=== PATIENT | female | born 1930 | race Caucasian/White ===

== ENCOUNTER 2017-10-02 14:08 | Inpatient (IN) | payer MEDICARE ==
[2017-10-02 14:52] LABS: % BASOPHILS 1.4 % (0.0-2.0); % EOSINOPHILS 1.7 % (0.0-5.0); % LYMPHOCYTES 30.3 % (20.0-50.0); % MONOCYTES 11.8 % (2.0-10.0); % NEUTROPHILS 54.8 % (40.0-80.0); BASOPHILE ABSOLUTE 0.1 Th/cumm (0-0.2); EOSINOPHILE ABSOLUTE 0.1 Th/cmm (0.1-0.4); HEMATOCRIT 38.7 % (41.0-60); LYMPHOCYTE ABSOLUTE 2.1 Th/cmm (1.5-3.0); MEAN CELL VOLUME 84.9 fl (81-100); MEAN CORPUSCULAR HEMOGLOBIN 28.7 pg (27.0-31.0); MEAN CORPUSCULAR HGB CONC 33.7 pg (28.0-36.0); MEAN PLATELET VOLUME 8.1 fl; MONOCYTE ABSOLUTE 0.8 Th/cmm (0.3-1.0); NEUTROPHILE ABSOLUTE 3.8 Th/cmm (1.8-8.0); PLATELET COUNT 197 Th/cmm (150-400); RED BLOOD COUNT 4.55 Mil/cmm (3.80-5.20); RED CELL DISTRIBUTION WIDTH 15.3 % (11.5-20.0); WHITE BLOOD COUNT 6.9 Th/cmm (4.8-10.8)
--- NOTE | 2017-10-02 14:54 | Diagnostic Imaging Report ---
Portable chest x-ray HISTORY: Pain The heart size is normal. A 5 mm calcified nodule is seen within the left upper lobe of the lung consistent with old granulomatous disease. No acute pulmonary processes. No hilar or mediastinal abnormalities. IMPRESSION: 1. Small calcified nodule within the left upper lobe of the lung consistent with old granulomatous disease. 2. No acute abnormalities
[2017-10-02 14:58] LABS: INR 0.98 (0.5-1.4); PROTHROMBIN TIME (TEST) 10.2 SECONDS (9.5-11.5)
--- NOTE | 2017-10-02 14:59 | ED Physician Chart ---
ED Chief Complaint/HPI - Patient Information Date Seen:: 10/02/17 Time Seen:: 14:40 Chief Complaint:: Fever History of Present Illness:: onset x 3 days of fever, cough, congestion, and dyspnea; no report of trauma, H/ As, S/T, neck pain, C/P, Abd. Pain, A/N/V/D/C, chills, or urinary s/s Allergies:: Allergies Allergy/AdvReac Type Severity Reaction Status Date / Time No Known Allergies Allergy Verified 10/02/17 14:37 Vitals:: Vital Signs - 8 hr 10/02/17 14:42 Temp 98.4 F HR 77 RR 27 BP 207/94 O2 Sat % 97 Historian:: Patient, Family Member Review:: Nurse's Note Reviewed ED Review of Systems - Review of Systems General/Constitutional: Fever, No chills, No weight loss, No weakness, No diaphoresis, No edema, No loss of appetite Skin: No skin lesions, No rash, No bruising Head: No headache, No light-headedness Eyes: No loss of vision, No pain, No diplopia ENT: No earache, Nasal drainage, No sore throat, No tinnitus Neck: No neck pain, No swelling, No thyromegaly, No stiffness, No mass noted Cardio Vascular: No chest pain, No palpitations, No PND, No orthopnea, No edema Pulmonary: SOB, Cough, No sputum, No wheezing GI: No nausea, No vomiting, No diarrhea, No pain, No melena, No hematochezia, No constipation, No hematemesis G/U: No dysuria, No frequency, No hematuria, No nacturia Loss Prevention Detective: No vaginal discharge, No abnormal vaginal bleed, No contraction Musculoskeletal: No bone or joint pain, No back pain, No muscle pain Endocrine: No polyuria, No polydipsia Psychiatric: No prior psych history, No depression, No anxiety, No suicidal ideation, No homicidal ideation, No auditory hallucination, No visual hallucination Hematopoietic: No bruising, No lymphadenopathy Allergic/Immuno: No urticaria, No angioedema Neurological: No syncope, No focal symptoms, No weakness, No paresthesia, No headache, No seizure, No dizziness, Confusion, No vertigo ED Past Medical History - Past Medical History Obtainable: Yes Past Medical History: HTN, Asthma/COPD, Dyslipidemia, Dementia Family History: HTN Social History: Non Smoker, No Alcohol, No Drug Use, Surgical History: None Psychiatricy History: Dementia Medication: Reviewed ED Physical Exam - Physical Examination General/Constitutional: Awake, Well-developed, well-nourished, Alert, No distress, GCS 15, Non-toxic appearing, Ambulatory Head: Atraumatic Eyes: Lids, conjuctiva normal, PERRL, EOMI Skin: Nl inspection, No rash, No skin lesions, No ecchymosis, Well hydrated, No lymphadenopathy ENMT: External ears, nose nl, TM canals nl, Nasal exam nl, Lips, teeth, gums nl , Oropharynx nl, Tonsils nl Neck: Nontender, Full ROM w/o pain, No JVD, No nuchal rigidity, No bruit, No mass, No stridor Other Neck comments:: no meningeal signs; supple Respiratory: Nl effort/Exclusion Other Respiratory comments:: Lungs: + Rales Cardio Vascular: RRR, No murmur, gallop, rubs, NL S1 S2, Carotid/Femoral/Distal pulses equal bilaterally GI: No tenderness/rebounding/guarding, No organomegaly, No hernia, Normal BS's, Nondistended, No mass/bruits, No McBurney tenderness Other GI comments:: no pulsatile masses : No CVA tenderness Extremities: No tenderness or effusion, Full ROM, normal strength in all extremities, No edema, Normal digits & nails Neuro/Psych: Alert/oriented, DTR's symmetric, Normal sensory exam, Normal motor strength, Judgement/insight normal, Mood normal, Normal gait, No focal deficits Misc: Normal back, No paraspinal tenderness ED Labs/Radiology/EKG Results - Lab Results Results: Laboratory Tests 10/02/17 14:30 WBC 6.9 RBC 4.55 Hgb 13.0 Hct 38.7 L MCV 84.9 MCH 28.7 MCHC Differential 33.7 RDW 15.3 Plt Count 197 MPV 8.1 Neutrophils % 54.8 Lymphocytes % 30.3 Monocytes % 11.8 H Eosinophils % 1.7 Basophils % 1.4 Comments:: D-Dimer: 1780; Troponin: .07; BNP: 255 - Radiology Results Comments:: + Infiltrate - EKG Interpretations EKG Time:: 14:33 Rate & Rhythm: 75; NSR Comments:: non-specific st-t changes ED Septic Shock - . Is Septic Shock (SBP<90, OR Lactate>4 mmol\L) present?: No - <6hrs of presentation: Vital Signs: Vital Signs - 8 hr 10/02/17 14:42 Temp 98.4 F HR 77 RR 27 BP 207/94 O2 Sat % 97 ED Reassessment (Disposition) - Reassessment Reassessment Condition:: Improved - Diagnosis Diagnosis:: Dx: Dyspnea; PNA; Sepsis; R/O: Pulmonary Embolus; CHF; Myocardial Ischemia - Aftercare/Follow up Instructions Aftercare/Follow-Up Instructions:: Counseled pt regarding lab results/diagnosis & need follow up, Counseled pt & family regarding lab results/diagnosis & need follow up - Patient Disposition Discharge/Transfer:: Acute Care w/in this hosp Accepting Physician:: Dr. Hurtado Time Called:: 1600 Time Responded:: 16:00 Admitted to:: Telemetry Spoke to:: Dr. Hurtado Admitting Medical Physician:: Dr. Hurtado Condition at Disposition:: Stable, Improved
[2017-10-02 15:03] LABS: ALB/GLOB RATIO 1.3 (1.0-1.8); ALBUMIN 3.9 gm/dL (3.7-5.3); ALKALINE PHOSPHATASE 71 U/L (34-104); ANION GAP 13.6 (7.0-16.0); BILIRUBIN,TOTAL 0.4 mg/dL (0.3-1.0); BUN - UREA NITROGEN 23 mg/dL (7-25); CALCIUM SERUM 9.6 mg/dL (8.6-10.3); CARBON DIOXIDE 23.5 mEq/L (21.0-31.0); CHLORIDE 101 mEq/L (98-107); CHOLESTEROL 179 mg/dL (<200); CREATININE - SERUM 1.1 mg/dL (0.6-1.2); CREATININE KINASE 465 U/L (30-223); GLUCOSE 90 mg/dL (70-105); HDL -HIGH DENSITY LIPOPROTEIN 48 mg/dL (23-92); POTASSIUM SERUM 4.1 mEq/L (3.5-5.1); SGOT 37 U/L (13-39); SGPT/ALT 12 U/L (7-52); SODIUM SERUM 134 mEq/L (136-145); TOTAL PROTEIN,SERUM 6.9 gm/dL (6.0-8.3); TRIGLYCERIDES 117 mg/dL (<150)
[2017-10-02 15:18] LABS: DDIMER QUANT 1780 ng/mL (100-400)
[2017-10-02] MEDS ORDERED: Aspirin 81mg Chewable Tab PO STA ×2 (15:59→18:11)
[2017-10-02] MEDS ORDERED: IOHEXOL 350mgI/mL 100mL Bottle IVP ONE (16:19)
[2017-10-02 16:53] LABS: URINE MICROSCOPIC INDICATED? YES; URINE SOURCE MIDSTREAM
[2017-10-02 16:57] LABS: URINE BILIRUBIN NEGATIVE (NEGATIVE); URINE BLOOD TRACE (NEGATIVE); URINE GLUCOSE (UA) NEGATIVE (NEGATIVE); URINE KETONE NEGATIVE (NEGATIVE); URINE LEUKOCYTE ESTERASE TRACE (NEGATIVE); URINE NITRATE NEGATIVE (NEGATIVE); URINE PROTEIN NEGATIVE (NEGATIVE); URINE UROBILINOGEN 0.2 E.U./dL (0.2 - 1.0)
[2017-10-02 17:04] LABS: URINE CLARITY CLEAR (CLEAR); URINE COLOR YELLOW
[2017-10-02 17:10] LABS: URINE RBC 0-2 /hpf (0-5); URINE WBC 0-2 /hpf (0-5)
[2017-10-02 17:11] LABS: URINE BACTERIA NONE SEEN /hpf (NONE SEEN); URINE EPITHELIAL CELLS RARE /lpf (FEW)
[2017-10-02] MEDS ORDERED: Aspirin 81mg Chewable Tab ONE (17:25)
[2017-10-02] MEDS ORDERED: cefTRIAXone 1 GM in Sodium Chloride 0.9% 50 ML IV ONE (17:29)
[2017-10-02] MEDS ORDERED: Enoxaparin 60 mg/0.6 mL 0.6mL Syr SUBQ ONE (18:51)
[2017-10-02] MEDS ORDERED: Lovenox 1 mg/kg Q12H 1 Each Miscellaneous SUBQ SCH (19:00)
[2017-10-02] MEDS: Enoxaparin 40 mg/0.4 mL 0.4mL Syr SUBQ SCH (22:52)
--- NOTE | 2017-10-02 23:14 | History & Physical ---
ADMIT DATE: 10/02/2017 CHIEF COMPLAINT: Acute shortness of breath. HISTORY OF PRESENT ILLNESS: The patient is an 86-year-old female with long history of hypertension, hypothyroidism, mild dementia, presented to the Emergency Room with shortness of breath. CT of the chest, negative for pulmonary embolism. The patient admitted to the ICU. Dr. Samy Conde consult on the case. Initial workup significant for possible CHF. The patient started on IV Lasix. She denies any chest pain, any nausea, vomiting, fever or chills. The patient is a DNR. PAST MEDICAL HISTORY: Significant for hypertension, hypothyroidism, depression, mild dementia. PAST SURGICAL HISTORY: No recent surgery. ALLERGIES: None. MEDICATIONS: Follow admission reconciliation. SOCIAL HISTORY: No smoking, no alcohol, no drug. FAMILY HISTORY: Noncontributory. REVIEW OF SYSTEMS: RENAL SYSTEM: No history of chronic renal disorder. CARDIOVASCULAR SYSTEM: She has history of hypertension, CHF. ENDOCRINE SYSTEM: She has history of hypothyroidism. GASTROINTESTINAL SYSTEM: No upper or lower gastrointestinal bleed. NEUROLOGICAL SYSTEM: She has history of depression, possible early dementia. MUSCULOSKELETAL SYSTEM: No muscular dystrophy. HEMATOLOGIC SYSTEM: No bleeding tendencies. RESPIRATORY SYSTEM: No asthma. GENITOURINARY SYSTEM: No dysuria or hematuria. PHYSICAL EXAMINATION: GENERAL: She is awake, alert, mildly confused. VITAL SIGNS: Temperature 98, heart rate 77, blood pressure 183/81. HEENT: Normocephalic. Pupils reactive to light and accommodation. Sclerae clear. NECK: Supple. Negative for lymphadenopathy, JVD or bruit. CHEST: Air bilaterally normal. No rales, rhonchi or wheezing. HEART: S1, S2 normal, no gallop rhythm. ABDOMEN: Soft, bowel sounds positive. EXTREMITIES: No edema. NEUROLOGIC: She is awake, alert, mildly confused. No focal motor or sensory deficits. Cranial nerves 2-12 are intact. LABORATORY DATA: White blood 6, hemoglobin 13, hematocrit 38.7, and platelet 197. INR 0.98. Sodium 138, potassium 4.1, BUN is 23, creatinine 1.1. Troponin 0.07. ASSESSMENT: 1. Acute exacerbation of congestive heart failure. 2. Hypertension. 3. Hypothyroidism. 4. Depression. PLAN: The patient in the hospital under Dr. Hurtado's service. The patient started on cardiac diet, Lovenox 40 subq daily. The patient will resume her home medication. Dr. Samy Conde consulted on the case. The patient is a DNR upon the family request. JOB# [id number]
[2017-10-03] MEDS: Levothyroxine 0.075 Mg Tab PO SCH (07:50)
--- NOTE | 2017-10-03 08:42 | Diagnostic Imaging Report ---
Bilateral lower extremity Doppler venous ultrasound exam HISTORY: Pain/swelling Sonographic sector images were obtained through the deep venous systems of both legs. Associated Doppler data was obtained. The exam demonstrates patency of the common femoral, superficial femoral, popliteal, and posterior tibial veins bilaterally. Specifically, no thrombus is seen. There are normal compressibility and augmentation responses. IMPRESSION: Negative exam for deep vein thrombophlebitis.
--- NOTE | 2017-10-03 08:45 | Diagnostic Imaging Report ---
CT angiogram of the chest with intravenous contrast (CTA) HISTORY: Shortness of breath Total DLP equals 229 CTDI equals 10.0 Following administration of intravenous contrast, axial sections were obtained from a level above the clavicles down to level below the diaphragm. The overall heart size appears normal. There is normal opacification the main, right, and left pulmonary arteries. No intraluminal filling the x-ray seen. Specifically, no evidence of pulmonary embolism. No abnormal mediastinal masses. Atherosclerotic calcination seen within the aorta. No acute focal pulmonary parenchymal processes are seen. No pleural fluid. Degenerative changes noted throughout the spine. IMPRESSION: 1. No acute abnormalities 2. No evidence of pulmonary embolism 3. Atherosclerotic vascular changes
[2017-10-03] MEDS ORDERED: Pneumococcal Vaccine 0.5 mL Vial IM ONE (09:00)
[2017-10-03] MEDS ORDERED: NIFEDIPINE 90 MG PO SCH (09:00)
[2017-10-03] MEDS: Aspirin 81mg Chewable Tab PO SCH (09:03)
[2017-10-03] MEDS: Hydrocodone/APAP 10 mg/325 mg Tab PO PRN (09:05)
[2017-10-03] MEDS: Enoxaparin 40 mg/0.4 mL 0.4mL Syr SUBQ SCH (09:07)
[2017-10-03] MEDS: NIFEdipine 30 mg ER Tab PO SCH (10:35)
--- NOTE | 2017-10-03 10:52 | Internal Medicine Prog Note ---
Internal Medicine Subjective - Subjective Service Date: 10/03/17 Patient seen and examined:: with staff Patient is:: awake, verbal, in bed, confused Patient Complaints of:: other (NO SOB) Per staff patient has:: no adverse event Internal Medicine Objective - Results Result Diagrams: 10/02/17 14:30 10/02/17 14:30 Recent Labs: Laboratory Last Values WBC 6.9 Th/cmm (4.8-10.8) 10/02/17 14:30 RBC 4.55 Mil/cmm (3.80-5.20) 10/02/17 14:30 Hgb 13.0 gm/dL (12-16) 10/02/17 14:30 Hct 38.7 % (41.0-60) L 10/02/17 14:30 MCV 84.9 fl (81-100) 10/02/17 14:30 MCH 28.7 pg (27.0-31.0) 10/02/17 14:30 MCHC Differential 33.7 pg (28.0-36.0) 10/02/17 14:30 RDW 15.3 % (11.5-20.0) 10/02/17 14:30 Plt Count 197 Th/cmm (150-400) 10/02/17 14:30 MPV 8.1 fl 10/02/17 14:30 Neutrophils % 54.8 % (40.0-80.0) 10/02/17 14:30 Lymphocytes % 30.3 % (20.0-50.0) 10/02/17 14:30 Monocytes % 11.8 % (2.0-10.0) H 10/02/17 14:30 Eosinophils % 1.7 % (0.0-5.0) 10/02/17 14:30 Basophils % 1.4 % (0.0-2.0) 10/02/17 14:30 PT 10.2 SECONDS (9.5-11.5) 10/02/17 14:30 INR 0.98 (0.5-1.4) 10/02/17 14:30 PTT (Actin FS) 23.2 SECONDS (26.0-38.0) L 10/02/17 14:30 D-Dimer 1780 ng/mL (100-400) H 10/02/17 14:30 Sodium 134 mEq/L (136-145) L 10/02/17 14:30 Potassium 4.1 mEq/L (3.5-5.1) 10/02/17 14:30 Chloride 101 mEq/L (98-107) 10/02/17 14:30 Carbon Dioxide 23.5 mEq/L (21.0-31.0) 10/02/17 14:30 Anion Gap 13.6 (7.0-16.0) 10/02/17 14:30 BUN 23 mg/dL (7-25) 10/02/17 14:30 Creatinine 1.1 mg/dL (0.6-1.2) 10/02/17 14:30 Est GFR ( Amer) TNP 10/02/17 14:30 Est GFR (Non-Af Amer) TNP 10/02/17 14:30 BUN/Creatinine Ratio 20.9 10/02/17 14:30 Glucose 90 mg/dL (70-105) 10/02/17 14:30 Whole Bld Lactic Acid 1.42 mmol/L (0.60-1.99) 10/02/17 14:30 Calcium 9.6 mg/dL (8.6-10.3) 10/02/17 14:30 Total Bilirubin 0.4 mg/dL (0.3-1.0) 10/02/17 14:30 AST 37 U/L (13-39) 10/02/17 14:30 ALT 12 U/L (7-52) 10/02/17 14:30 Alkaline Phosphatase 71 U/L (34-104) 10/02/17 14:30 Creatine Kinase 465 U/L (30-223) H 10/02/17 14:30 CK-MB (CK-2) 7.0 ng/mL (0.6-6.3) H 10/02/17 14:30 Troponin I 0.07 ng/mL (0.01-0.05) H* 10/02/17 14:30 B-Natriuretic Peptide 255.0 pg/mL (5.0-100.0) H 10/02/17 14:30 Total Protein 6.9 gm/dL (6.0-8.3) 10/02/17 14:30 Albumin 3.9 gm/dL (3.7-5.3) 10/02/17 14:30 Globulin 3.0 gm/dL 10/02/17 14:30 Albumin/Globulin Ratio 1.3 (1.0-1.8) 10/02/17 14:30 Triglycerides 117 mg/dL (<150) 10/02/17 14:30 Cholesterol 179 mg/dL (<200) 10/02/17 14:30 LDL Cholesterol Direct 108 mg/dL (75-193) 10/02/17 14:30 HDL Cholesterol 48 mg/dL (23-92) 10/02/17 14:30 Urine Source MIDSTREAM 10/02/17 16:20 Urine Color YELLOW 10/02/17 16:20 Urine Clarity CLEAR (CLEAR) 10/02/17 16:20 Urine pH 6.0 (4.6 - 8.0) 10/02/17 16:20 Ur Specific [place] <= 1.005 (1.005-1.030) 10/02/17 16:20 Urine Protein NEGATIVE mg/dL (NEGATIVE) 10/02/17 16:20 Urine Glucose (UA) NEGATIVE mg/dL (NEGATIVE) 10/02/17 16:20 Urine Ketones NEGATIVE mg/dL (NEGATIVE) 10/02/17 16:20 Urine Blood TRACE (NEGATIVE) 10/02/17 16:20 Urine Nitrate NEGATIVE (NEGATIVE) 10/02/17 16:20 Urine Bilirubin NEGATIVE (NEGATIVE) 10/02/17 16:20 Urine Urobilinogen 0.2 E.U./dL (0.2 - 1.0) 10/02/17 16:20 Ur Leukocyte Esterase TRACE (NEGATIVE) H 10/02/17 16:20 Urine RBC 0-2 /hpf (0-5) 10/02/17 16:20 Urine WBC 0-2 /hpf (0-5) 10/02/17 16:20 Ur Epithelial Cells RARE /lpf (FEW) 10/02/17 16:20 Urine Bacteria NONE SEEN /hpf (NONE SEEN) 10/02/17 16:20 - Physical Exam Vitals and I&O: Vital Signs Temp 97.9 F 10/03/17 04:00 Pulse 64 10/03/17 10:35 Resp 20 10/03/17 06:00 BP 142/55 10/03/17 10:35 Pulse Ox 96 10/03/17 06:00 Intake & Output 05/09/1610/03/17 10/03/17 18:59 06:59 18:59 Intake Total 200 Balance 200 Weight (lbs) 61.32 kg Intake: Oral 200 Other: # Voids 3 # Bowel Movements 0 Weight Source Bedscale Active Medications: Current Medications Acetaminophen/Hydrocodone Bitart ([place] 10 Mg/325 Mg) 1 tab PO Q6H PRN PRN Reason: pain Stop: 12/01/17 22:19 Last Admin: 10/03/17 09:05 Dose: 1 tab Alprazolam (Xanax) 0.25 mg PO Q8HR PRN; Protocol PRN Reason: Agitation Stop: 12/01/17 22:27 Last Admin: 10/02/17 22:45 Dose: 0.25 mg Aspirin (Aspirin Chewable) 81 mg PO DAILY [facility] Stop: 12/02/17 08:59 Last Admin: 10/03/17 09:03 Dose: 81 mg Cholecalciferol (Vitamin D3) 1,000 iu PO DAILY [facility] Stop: 12/02/17 08:59 Last Admin: 10/03/17 09:05 Dose: 1,000 iu Enoxaparin Sodium (Lovenox) 40 mg SUBQ DAILY [facility] Stop: 12/01/17 22:41 Last Admin: 10/03/17 09:07 Dose: 40 mg Furosemide (Lasix) 20 mg IVP Q12H [facility] Stop: 12/01/17 22:41 Last Admin: 10/03/17 10:34 Dose: 20 mg Hydralazine HCl (Apresoline) 50 mg PO TID [facility] Stop: 12/02/17 13:59 Levothyroxine Sodium (Synthroid) 0.075 mg PO QDAC [facility] Stop: 12/02/17 07:29 Last Admin: 10/03/17 07:50 Dose: 0.075 mg Losartan Potassium (Cozaar) 100 mg PO DAILY [facility] Stop: 12/03/17 08:59 Metoprolol Tartrate (Lopressor) 25 mg PO BID [facility] Stop: 12/01/17 22:29 Last Admin: 10/03/17 09:03 Dose: 25 mg Nifedipine (Procardia Xl) 90 mg PO DAILY [facility] Stop: 12/02/17 09:59 Last Admin: 10/03/17 10:35 Dose: 90 mg Paroxetine HCl (Paxil) 40 mg PO DAILY [facility] PRN Reason: Protocol Stop: 12/02/17 08:59 Last Admin: 10/03/17 09:02 Dose: 40 mg General: demented HEENT: anicteric sclerae, throat clear Neck: Supple, No JVD, No thyromegaly, +2 carotid pulse wo bruit, No LAD Lungs: CTAB Cardiovascular: RRR, Normal S1, Normal S2, without murmur Abdomen: non-tender, non-distended Extremities: clear Neurological: no change Internal Medicine Assmt/Plan - Assessment Assessment: 1.CHF. 2.UNCONTROLLED HTN 3.DEMENTIA. - Plan Plan: CONTINUE ON CURRENT MEDICATION AND DIET.
--- NOTE | 2017-10-03 21:05 | Consultation ---
DATE OF CONSULTATION: 10/03/[address] Hurtado. HISTORY AND PHYSICAL: This is an 86-year-old female patient who has dementia, came to the Emergency Room complaining of shortness of breath. The patient was admitted to ICU. No history of PND, orthopnea. PAST MEDICAL HISTORY: Hypertension, hypothyroid, dementia, depression, osteoporosis. FAMILY HISTORY: Unremarkable. SOCIAL HISTORY: No history of smoking, alcohol abuse. ALLERGIES: No known allergies. PHYSICAL EXAMINATION: VITAL SIGNS: Blood pressure 180/80, pulse 70, respirations 20. HEAD: Normocephalic. No lumps or bumps. EYES: Pupils equal, reactive to light. Fundi show AV nicking, sclerae white, conjunctivae pink. NECK: Carotid 2+. Normal upstroke. JVD flat. Thyroid not palpable. Lymph nodes not palpable. CHEST: Shows increased AP diameter. No kyphosis, scoliosis. LUNGS: Bilateral bronchovesicular breath sounds. HEART: PMI fifth intercostal space with lateral to midclavicular line. S1, S2. No S3, S4, soft systolic murmur. ABDOMEN: Soft. Liver, spleen not palpable. No organomegaly. Bowel sounds active. NEUROLOGIC: Unremarkable. EXTREMITIES: Peripheral pulse is 2+. No pedal edema. CLINICAL IMPRESSION: Accelerated hypertension, sinus bradycardia, hypothyroid, dementia, depression and osteoporosis. PLAN: At the present time, continue antihypertensive medication. Get TSH level, echocardiogram and control the blood pressure in the ICU. JOB# [id number]
[2017-10-04 06:43] LABS: % LYMPHOCYTES 30.8 % (20.0-50.0); % MONOCYTES 10.3 % (2.0-10.0); % NEUTROPHILS 54.9 % (40.0-80.0); BASOPHILE ABSOLUTE 0.1 Th/cumm (0-0.2); EOSINOPHILE ABSOLUTE 0.2 Th/cmm (0.1-0.4); HEMATOCRIT 42.6 % (41.0-60); HEMOGLOBIN 14.2 gm/dL (12-16); LYMPHOCYTE ABSOLUTE 2.6 Th/cmm (1.5-3.0); MEAN CELL VOLUME 85.1 fl (81-100); MEAN CORPUSCULAR HEMOGLOBIN 28.4 pg (27.0-31.0); MEAN CORPUSCULAR HGB CONC 33.4 pg (28.0-36.0); MEAN PLATELET VOLUME 8.4 fl; MONOCYTE ABSOLUTE 0.9 Th/cmm (0.3-1.0); NEUTROPHILE ABSOLUTE 4.5 Th/cmm (1.8-8.0); PLATELET COUNT 237 Th/cmm (150-400); RED CELL DISTRIBUTION WIDTH 14.9 % (11.5-20.0); WHITE BLOOD COUNT 8.3 Th/cmm (4.8-10.8)
[2017-10-04 07:09] LABS: ANION GAP 12.6 (7.0-16.0); BUN - UREA NITROGEN 25 mg/dL (7-25); CARBON DIOXIDE 29.1 mEq/L (21.0-31.0); CHLORIDE 97 mEq/L (98-107); CHOLESTEROL 204 mg/dL (<200); CREATININE - SERUM 1.4 mg/dL (0.6-1.2); GLUCOSE 122 mg/dL (70-105); HDL -HIGH DENSITY LIPOPROTEIN 45 mg/dL (23-92); POTASSIUM SERUM 3.7 mEq/L (3.5-5.1); SODIUM SERUM 135 mEq/L (136-145); TRIGLYCERIDES 155 mg/dL (<150)
[2017-10-04] MEDS: Levothyroxine 0.075 Mg Tab PO SCH (09:33)
[2017-10-04] MEDS: Aspirin 81mg Chewable Tab PO SCH (09:33)
[2017-10-04] MEDS: Enoxaparin 40 mg/0.4 mL 0.4mL Syr SUBQ SCH (09:36)
--- NOTE | 2017-10-04 14:34 | Consultation ---
DATE OF CONSULTATION: 10/04/2017 PHYSICIAN: Dr. Hurtado. CREDIT RISK OFFICER: Dr. Martinez. REASON FOR THE CONSULT: Agitation. HISTORY OF PRESENT ILLNESS: The patient was admitted to the hospital because of shortness of breath. The patient has been agitated. According to staff, the patient was walking naked. The patient also has been restless and agitated. Also at home, patient has been paranoid and has been thinking that people will take over her things. Also her daughter, according to staff, has been concerned because there are younger children in the home and they are concerned about them. PAST PSYCHIATRIC HISTORY: The patient seems to have history of depression and she is taking Paxil. PAST MEDICAL HISTORY: The patient was admitted to the hospital with shortness of breath. She also has history of hypothyroidism as well as hypertension and mild dementia. SOCIAL HISTORY: The patient lives in her place, but also has other family members living with her. No known alcohol or drug use. MENTAL STATUS EXAM: The patient appears her stated age. Currently calm, but did not answer much of questions and she because of slightly sedated. Tried to let the patient engaged in answering questions, but patient was sedated and she did not answer any of my questions. The patient did not answer questions regarding hallucinations or delusions or regarding suicide or homicide. The patient is sleepy and unable to assess orientation or memory at this time. Poor insight and judgment. PRIMARY DIAGNOSES: Major depression, severe, recurrent, with psychotic features. TREATMENT PLAN: 1. We will monitor the patient's behavior and her condition closely. We will start the patient on Seroquel 12.5 mg at bedtime. Also, we will continue Paxil and we will continue to follow up. 2. We will monitor her behavior. Thanks to Dr. Hurtado and we will follow up with you. JOB# [id number]
[2017-10-04] MEDS: Hydrocodone/APAP 10 mg/325 mg Tab PO PRN (20:34)
--- NOTE | 2017-10-04 21:16 | Internal Medicine Prog Note ---
Internal Medicine Subjective - Subjective Service Date: 10/04/17 Patient seen and examined:: with staff (SHE FEELS WELL,NO SOB.) Patient is:: awake, verbal, in bed, confused Patient Complaints of:: other (NO SOB) Per staff patient has:: no adverse event Internal Medicine Objective - Results Result Diagrams: 10/04/17 06:00 10/04/17 06:00 Recent Labs: Laboratory Last Values WBC 8.3 Th/cmm (4.8-10.8) 10/04/17 06:00 RBC 5.00 Mil/cmm (3.80-5.20) 10/04/17 06:00 Hgb 14.2 gm/dL (12-16) 10/04/17 06:00 Hct 42.6 % (41.0-60) 10/04/17 06:00 MCV 85.1 fl (81-100) 10/04/17 06:00 MCH 28.4 pg (27.0-31.0) 10/04/17 06:00 MCHC Differential 33.4 pg (28.0-36.0) 10/04/17 06:00 RDW 14.9 % (11.5-20.0) 10/04/17 06:00 Plt Count 237 Th/cmm (150-400) 10/04/17 06:00 MPV 8.4 fl 10/04/17 06:00 Neutrophils % 54.9 % (40.0-80.0) 10/04/17 06:00 Lymphocytes % 30.8 % (20.0-50.0) 10/04/17 06:00 Monocytes % 10.3 % (2.0-10.0) H 10/04/17 06:00 Eosinophils % 3.0 % (0.0-5.0) 10/04/17 06:00 Basophils % 1.0 % (0.0-2.0) 10/04/17 06:00 PT 10.2 SECONDS (9.5-11.5) 10/02/17 14:30 INR 0.98 (0.5-1.4) 10/02/17 14:30 PTT (Actin FS) 23.2 SECONDS (26.0-38.0) L 10/02/17 14:30 D-Dimer 1780 ng/mL (100-400) H 10/02/17 14:30 Sodium 135 mEq/L (136-145) L 10/04/17 06:00 Potassium 3.7 mEq/L (3.5-5.1) 10/04/17 06:00 Chloride 97 mEq/L (98-107) L 10/04/17 06:00 Carbon Dioxide 29.1 mEq/L (21.0-31.0) 10/04/17 06:00 Anion Gap 12.6 (7.0-16.0) 10/04/17 06:00 BUN 25 mg/dL (7-25) 10/04/17 06:00 Creatinine 1.4 mg/dL (0.6-1.2) H 10/04/17 06:00 Est GFR ( Amer) TNP 10/04/17 06:00 Est GFR (Non-Af Amer) TNP 10/04/17 06:00 BUN/Creatinine Ratio 17.9 10/04/17 06:00 Glucose 122 mg/dL (70-105) H 10/04/17 06:00 Whole Bld Lactic Acid 1.42 mmol/L (0.60-1.99) 10/02/17 14:30 Calcium 10.0 mg/dL (8.6-10.3) 10/04/17 06:00 Total Bilirubin 0.4 mg/dL (0.3-1.0) 10/02/17 14:30 AST 37 U/L (13-39) 10/02/17 14:30 ALT 12 U/L (7-52) 10/02/17 14:30 Alkaline Phosphatase 71 U/L (34-104) 10/02/17 14:30 Creatine Kinase 465 U/L (30-223) H 10/02/17 14:30 CK-MB (CK-2) 7.0 ng/mL (0.6-6.3) H 10/02/17 14:30 Troponin I 0.05 ng/mL (0.01-0.05) 10/04/17 06:00 B-Natriuretic Peptide 255.0 pg/mL (5.0-100.0) H 10/02/17 14:30 Total Protein 6.9 gm/dL (6.0-8.3) 10/02/17 14:30 Albumin 3.9 gm/dL (3.7-5.3) 10/02/17 14:30 Globulin 3.0 gm/dL 10/02/17 14:30 Albumin/Globulin Ratio 1.3 (1.0-1.8) 10/02/17 14:30 Triglycerides 155 mg/dL (<150) H 10/04/17 06:00 Cholesterol 204 mg/dL (<200) H 10/04/17 06:00 LDL Cholesterol Direct 133 mg/dL (75-193) 10/04/17 06:00 HDL Cholesterol 45 mg/dL (23-92) 10/04/17 06:00 Urine Source MIDSTREAM 10/02/17 16:20 Urine Color YELLOW 10/02/17 16:20 Urine Clarity CLEAR (CLEAR) 10/02/17 16:20 Urine pH 6.0 (4.6 - 8.0) 10/02/17 16:20 Ur Specific [place] <= 1.005 (1.005-1.030) 10/02/17 16:20 Urine Protein NEGATIVE mg/dL (NEGATIVE) 10/02/17 16:20 Urine Glucose (UA) NEGATIVE mg/dL (NEGATIVE) 10/02/17 16:20 Urine Ketones NEGATIVE mg/dL (NEGATIVE) 10/02/17 16:20 Urine Blood TRACE (NEGATIVE) 10/02/17 16:20 Urine Nitrate NEGATIVE (NEGATIVE) 10/02/17 16:20 Urine Bilirubin NEGATIVE (NEGATIVE) 10/02/17 16:20 Urine Urobilinogen 0.2 E.U./dL (0.2 - 1.0) 10/02/17 16:20 Ur Leukocyte Esterase TRACE (NEGATIVE) H 10/02/17 16:20 Urine RBC 0-2 /hpf (0-5) 10/02/17 16:20 Urine WBC 0-2 /hpf (0-5) 10/02/17 16:20 Ur Epithelial Cells RARE /lpf (FEW) 10/02/17 16:20 Urine Bacteria NONE SEEN /hpf (NONE SEEN) 10/02/17 16:20 - Physical Exam Vitals and I&O: Vital Signs Temp 96.5 F 10/04/17 11:56 Pulse 63 10/04/17 20:31 Resp 16 10/04/17 11:56 BP 136/59 10/04/17 20:31 Pulse Ox 96 10/04/17 11:56 Intake & Output 10/04/1718 10/05/17 06:59 18:59 06:59 Intake Total 500 600 Balance 500 600 Weight (lbs) 61.734 kg 66.497 kg Intake: Oral 500 600 Other: # Voids 2 3 # Bowel Movements 0 1 Weight Source Bedscale Bedscale Active Medications: Current Medications Acetaminophen/Hydrocodone Bitart ([place] 10 Mg/325 Mg) 1 tab PO Q6H PRN PRN Reason: pain Stop: 12/01/17 22:19 Last Admin: 10/04/17 20:34 Dose: 1 tab Alprazolam (Xanax) 0.25 mg PO Q8HR PRN; Protocol PRN Reason: Agitation Stop: 12/01/17 22:27 Last Admin: 10/03/17 11:36 Dose: 0.25 mg Aspirin (Aspirin Chewable) 81 mg PO DAILY [facility] Stop: 12/02/17 08:59 Last Admin: 10/04/17 09:33 Dose: 81 mg Cholecalciferol (Vitamin D3) 1,000 iu PO DAILY [facility] Stop: 12/02/17 08:59 Last Admin: 10/04/17 09:33 Dose: 1,000 iu Enoxaparin Sodium (Lovenox) 40 mg SUBQ DAILY [facility] Stop: 12/01/17 22:41 Last Admin: 10/04/17 09:36 Dose: 40 mg Furosemide (Lasix) 20 mg IVP Q12H [facility] Stop: 12/01/17 22:41 Last Admin: 10/04/17 11:11 Dose: 20 mg Hydralazine HCl (Apresoline) 50 mg PO TID [facility] Stop: 12/02/17 13:59 Last Admin: 10/04/17 20:31 Dose: 50 mg Levothyroxine Sodium (Synthroid) 0.075 mg PO QDAC [facility] Stop: 12/02/17 07:29 Last Admin: 10/04/17 09:33 Dose: 0.075 mg Losartan Potassium (Cozaar) 100 mg PO DAILY [facility] Stop: 12/03/17 08:59 Metoprolol Tartrate (Lopressor) 25 mg PO BID [facility] Stop: 12/01/17 22:29 Last Admin: 10/04/17 17:36 Dose: 25 mg Nifedipine (Procardia Xl) 90 mg PO DAILY [facility] Stop: 12/02/17 09:59 Last Admin: 10/03/17 10:35 Dose: 90 mg Paroxetine HCl (Paxil) 40 mg PO DAILY SUJATA PRN Reason: Protocol Stop: 12/02/17 08:59 Last Admin: 10/04/17 09:34 Dose: 40 mg Quetiapine Fumarate (Seroquel) 12.5 mg PO HS SUJATA PRN Reason: Protocol Stop: 12/03/17 20:59 General: demented HEENT: anicteric sclerae, throat clear Neck: Supple, No JVD, No thyromegaly, +2 carotid pulse wo bruit, No LAD Lungs: CTAB Cardiovascular: RRR, Normal S1, Normal S2, without murmur Abdomen: non-tender, non-distended Extremities: clear Neurological: no change Internal Medicine Assmt/Plan - Assessment Assessment: 1.CHF. 2.UNCONTROLLED HTN 3.DEMENTIA. - Plan Plan: CONTINUE ON CURRENT MEDICATION AND DIET.PT EVALUATION AND TREATMENT
[2017-10-05] MEDS: Levothyroxine 0.075 Mg Tab PO SCH (06:54)
--- NOTE | 2017-10-05 07:58 | Progress Notes ---
DATE: 10/05/2017 SUBJECTIVE: Chart reviewed and the patient interviewed. Also discussed the patient's condition with the staff and reviewed records and labs. The patient continued to be anxious and she is still having episodes of irritability and agitation. The patient also seems to be depressed. Today is "my birthday." The patient is very slow to response, but she seems to be slightly calmer, but still have episodes of agitation. Also, has been having difficulty with sleeping at night. Otherwise, the patient is compliant with taking medications with no side effects of Paxil or Seroquel. ASSESSMENT: The patient is still depressed and also have episodes of agitation. TREATMENT PLAN: We will continue monitoring her behavior and her condition and we will increase Seroquel to 25 mg at bedtime and will continue to follow up closely. Also, will work with window caser and Dr. Lopez in regard to discharge plans and where the patient will go after her discharge. At this time, I recommend placement in a place other than her own place. JOB# [id number]
[2017-10-05] MEDS: Enoxaparin 40 mg/0.4 mL 0.4mL Syr SUBQ SCH (08:56)
[2017-10-05] MEDS: NIFEdipine 30 mg ER Tab PO SCH (08:57)
[2017-10-05] MEDS: Aspirin 81mg Chewable Tab PO SCH (08:57)
--- NOTE | 2017-10-05 22:01 | Internal Medicine Prog Note ---
Internal Medicine Subjective - Subjective Service Date: 10/05/17 Patient seen and examined:: with staff (she has been agitated.) Patient is:: awake, verbal, in bed, confused Patient Complaints of:: other (NO SOB) Per staff patient has:: no adverse event Internal Medicine Objective - Results Result Diagrams: 10/04/17 06:00 10/04/17 06:00 Recent Labs: Laboratory Last Values WBC 8.3 Th/cmm (4.8-10.8) 10/04/17 06:00 RBC 5.00 Mil/cmm (3.80-5.20) 10/04/17 06:00 Hgb 14.2 gm/dL (12-16) 10/04/17 06:00 Hct 42.6 % (41.0-60) 10/04/17 06:00 MCV 85.1 fl (81-100) 10/04/17 06:00 MCH 28.4 pg (27.0-31.0) 10/04/17 06:00 MCHC Differential 33.4 pg (28.0-36.0) 10/04/17 06:00 RDW 14.9 % (11.5-20.0) 10/04/17 06:00 Plt Count 237 Th/cmm (150-400) 10/04/17 06:00 MPV 8.4 fl 10/04/17 06:00 Neutrophils % 54.9 % (40.0-80.0) 10/04/17 06:00 Lymphocytes % 30.8 % (20.0-50.0) 10/04/17 06:00 Monocytes % 10.3 % (2.0-10.0) H 10/04/17 06:00 Eosinophils % 3.0 % (0.0-5.0) 10/04/17 06:00 Basophils % 1.0 % (0.0-2.0) 10/04/17 06:00 PT 10.2 SECONDS (9.5-11.5) 10/02/17 14:30 INR 0.98 (0.5-1.4) 10/02/17 14:30 PTT (Actin FS) 23.2 SECONDS (26.0-38.0) L 10/02/17 14:30 D-Dimer 1780 ng/mL (100-400) H 10/02/17 14:30 Sodium 135 mEq/L (136-145) L 10/04/17 06:00 Potassium 3.7 mEq/L (3.5-5.1) 10/04/17 06:00 Chloride 97 mEq/L (98-107) L 10/04/17 06:00 Carbon Dioxide 29.1 mEq/L (21.0-31.0) 10/04/17 06:00 Anion Gap 12.6 (7.0-16.0) 10/04/17 06:00 BUN 25 mg/dL (7-25) 10/04/17 06:00 Creatinine 1.4 mg/dL (0.6-1.2) H 10/04/17 06:00 Est GFR ( Amer) TNP 10/04/17 06:00 Est GFR (Non-Af Amer) TNP 10/04/17 06:00 BUN/Creatinine Ratio 17.9 10/04/17 06:00 Glucose 122 mg/dL (70-105) H 10/04/17 06:00 Whole Bld Lactic Acid 1.42 mmol/L (0.60-1.99) 10/02/17 14:30 Calcium 10.0 mg/dL (8.6-10.3) 10/04/17 06:00 Total Bilirubin 0.4 mg/dL (0.3-1.0) 10/02/17 14:30 AST 37 U/L (13-39) 10/02/17 14:30 ALT 12 U/L (7-52) 10/02/17 14:30 Alkaline Phosphatase 71 U/L (34-104) 10/02/17 14:30 Creatine Kinase 465 U/L (30-223) H 10/02/17 14:30 CK-MB (CK-2) 7.0 ng/mL (0.6-6.3) H 10/02/17 14:30 Troponin I 0.05 ng/mL (0.01-0.05) 10/04/17 06:00 B-Natriuretic Peptide 255.0 pg/mL (5.0-100.0) H 10/02/17 14:30 Total Protein 6.9 gm/dL (6.0-8.3) 10/02/17 14:30 Albumin 3.9 gm/dL (3.7-5.3) 10/02/17 14:30 Globulin 3.0 gm/dL 10/02/17 14:30 Albumin/Globulin Ratio 1.3 (1.0-1.8) 10/02/17 14:30 Triglycerides 155 mg/dL (<150) H 10/04/17 06:00 Cholesterol 204 mg/dL (<200) H 10/04/17 06:00 LDL Cholesterol Direct 133 mg/dL (75-193) 10/04/17 06:00 HDL Cholesterol 45 mg/dL (23-92) 10/04/17 06:00 Urine Source MIDSTREAM 10/02/17 16:20 Urine Color YELLOW 10/02/17 16:20 Urine Clarity CLEAR (CLEAR) 10/02/17 16:20 Urine pH 6.0 (4.6 - 8.0) 10/02/17 16:20 Ur Specific [place] <= 1.005 (1.005-1.030) 10/02/17 16:20 Urine Protein NEGATIVE mg/dL (NEGATIVE) 10/02/17 16:20 Urine Glucose (UA) NEGATIVE mg/dL (NEGATIVE) 10/02/17 16:20 Urine Ketones NEGATIVE mg/dL (NEGATIVE) 10/02/17 16:20 Urine Blood TRACE (NEGATIVE) 10/02/17 16:20 Urine Nitrate NEGATIVE (NEGATIVE) 10/02/17 16:20 Urine Bilirubin NEGATIVE (NEGATIVE) 10/02/17 16:20 Urine Urobilinogen 0.2 E.U./dL (0.2 - 1.0) 10/02/17 16:20 Ur Leukocyte Esterase TRACE (NEGATIVE) H 10/02/17 16:20 Urine RBC 0-2 /hpf (0-5) 10/02/17 16:20 Urine WBC 0-2 /hpf (0-5) 10/02/17 16:20 Ur Epithelial Cells RARE /lpf (FEW) 10/02/17 16:20 Urine Bacteria NONE SEEN /hpf (NONE SEEN) 10/02/17 16:20 - Physical Exam Vitals and I&O: Vital Signs Temp 98.4 F 10/05/17 16:00 Pulse 63 10/05/17 16:40 Resp 18 10/05/17 16:00 BP 143/58 10/05/17 16:40 Pulse Ox 98 10/05/17 16:00 Intake & Output 10/05/17 10/05/17 10/06/17 06:59 18:59 06:59 Intake Total 240 500 Balance 240 500 Weight (lbs) 65.317 kg 65.317 kg Intake: Oral 240 500 Other: # Voids 2 3 # Bowel Movements 0 Weight Source Bedscale Bedscale Active Medications: Current Medications Acetaminophen/Hydrocodone Bitart ([place] 10 Mg/325 Mg) 1 tab PO Q6H PRN PRN Reason: pain Stop: 12/01/17 22:19 Last Admin: 10/04/17 20:34 Dose: 1 tab Alprazolam (Xanax) 0.25 mg PO Q8HR PRN; Protocol PRN Reason: Agitation Stop: 12/01/17 22:27 Last Admin: 10/05/17 11:06 Dose: 0.25 mg Aspirin (Aspirin Chewable) 81 mg PO DAILY [facility]JATA Stop: 12/02/17 08:59 Last Admin: 10/05/17 08:57 Dose: 81 mg Cholecalciferol (Vitamin D3) 1,000 iu PO DAILY [facility]JATA Stop: 12/02/17 08:59 Last Admin: 10/05/17 08:57 Dose: 1,000 iu Enoxaparin Sodium (Lovenox) 40 mg SUBQ DAILY [facility] Stop: 12/01/17 22:41 Last Admin: 10/05/17 08:56 Dose: 40 mg Furosemide (Lasix) 20 mg IVP Q12H [facility]JATA Stop: 12/01/17 22:41 Last Admin: 10/05/17 11:14 Dose: 20 mg Hydralazine HCl (Apresoline) 50 mg PO TID [facility]JATA Stop: 12/02/17 13:59 Last Admin: 10/05/17 14:22 Dose: 50 mg Levothyroxine Sodium (Synthroid) 0.075 mg PO QDAC SUJATA Stop: 12/02/17 07:29 Last Admin: 10/05/17 06:54 Dose: 0.075 mg Losartan Potassium (Cozaar) 100 mg PO DAILY [facility] Stop: 12/03/17 08:59 Last Admin: 10/05/17 14:21 Dose: 100 mg Metoprolol Tartrate (Lopressor) 25 mg PO BID [facility]JATA Stop: 12/01/17 22:29 Last Admin: 10/05/17 16:40 Dose: 25 mg Nifedipine (Procardia Xl) 90 mg PO DAILY [facility] Stop: 12/02/17 09:59 Last Admin: 10/05/17 08:57 Dose: 90 mg Paroxetine HCl (Paxil) 40 mg PO DAILY [facility]JATA PRN Reason: Protocol Stop: 12/02/17 08:59 Last Admin: 10/05/17 08:57 Dose: 40 mg Quetiapine Fumarate (Seroquel) 25 mg PO HS SUJATA PRN Reason: Protocol Stop: 12/04/17 07:08 General: demented HEENT: anicteric sclerae, throat clear Neck: Supple, No JVD, No thyromegaly, +2 carotid pulse wo bruit, No LAD Lungs: CTAB Cardiovascular: RRR, Normal S1, Normal S2, without murmur Abdomen: non-tender, non-distended Extremities: clear Neurological: no change Internal Medicine Assmt/Plan - Assessment Assessment: 1.CHF. 2.UNCONTROLLED HTN 3.DEMENTIA. - Plan Plan: CONTINUE ON CURRENT MEDICATION AND DIET.
--- NOTE | 2017-10-06 05:01 | Cardiology ---
10/03/2017 PROCEDURE: Echocardiogram. The patient of Dr. Hurtado. M-MODE ECHOCARDIOGRAM: Mitral valve, anterior leaflet of mitral valve shows normal excursion, EF velocity. Posterior leaflet of mitral valve shows normal excursion. Left ventricular posterior wall shows increased thickness, normal excursion. Interventricular septum shows increased thickness, normal excursion, hypertrophy of the left ventricle, ejection fraction 60%. Left atrium normal. Aortic root shows normal dimension, normal excursion of aortic leaflets. CONCLUSION: Hypertrophy of the left ventricle, ejection fraction 60%. 2D ECHO: Long axis view showed normal sized left ventricle with minimal hypertrophy of the left ventricle. Left atrium normal. Aortic root shows normal dimension, normal excursion of aortic leaflets. Short axis view of mitral valve normal. Short axis view of aortic valve normal. Apical four chamber view showed normal sized left ventricle with minimal hypertrophy of the left ventricle. Left atrium is normal. Right ventricular cavity, right atrium normal, no pericardial effusion. CONCLUSION: Minimal hypertrophy of the left ventricle, ejection fraction 60%. Doppler study shows mild tricuspid regurgitation, mild mitral regurgitation, mild pulmonary regurgitation, right ventricular systolic pressure 19 mmHg. JOB# [id number]
[2017-10-06] MEDS: NIFEdipine 30 mg ER Tab PO SCH ×2 (10:16→13:58)
[2017-10-06] MEDS: Levothyroxine 0.075 Mg Tab PO SCH (10:17)
[2017-10-06] MEDS: Aspirin 81mg Chewable Tab PO SCH (10:18)
[2017-10-06] MEDS: Enoxaparin 40 mg/0.4 mL 0.4mL Syr SUBQ SCH (10:20)
[2017-10-06] MEDS: Hydrocodone/APAP 10 mg/325 mg Tab PO PRN (13:48)
--- NOTE | 2017-10-06 22:13 | Internal Medicine Prog Note ---
Internal Medicine Subjective - Subjective Service Date: 10/06/17 Patient seen and examined:: with staff (SHE IS DOING BETTER,STIILL CONFUSED.) Patient is:: awake, verbal, in bed, confused Patient Complaints of:: other (NO SOB) Per staff patient has:: no adverse event Internal Medicine Objective - Results Result Diagrams: 10/04/17 06:00 10/04/17 06:00 Recent Labs: Laboratory Last Values WBC 8.3 Th/cmm (4.8-10.8) 10/04/17 06:00 RBC 5.00 Mil/cmm (3.80-5.20) 10/04/17 06:00 Hgb 14.2 gm/dL (12-16) 10/04/17 06:00 Hct 42.6 % (41.0-60) 10/04/17 06:00 MCV 85.1 fl (81-100) 10/04/17 06:00 MCH 28.4 pg (27.0-31.0) 10/04/17 06:00 MCHC Differential 33.4 pg (28.0-36.0) 10/04/17 06:00 RDW 14.9 % (11.5-20.0) 10/04/17 06:00 Plt Count 237 Th/cmm (150-400) 10/04/17 06:00 MPV 8.4 fl 10/04/17 06:00 Neutrophils % 54.9 % (40.0-80.0) 10/04/17 06:00 Lymphocytes % 30.8 % (20.0-50.0) 10/04/17 06:00 Monocytes % 10.3 % (2.0-10.0) H 10/04/17 06:00 Eosinophils % 3.0 % (0.0-5.0) 10/04/17 06:00 Basophils % 1.0 % (0.0-2.0) 10/04/17 06:00 PT 10.2 SECONDS (9.5-11.5) 10/02/17 14:30 INR 0.98 (0.5-1.4) 10/02/17 14:30 PTT (Actin FS) 23.2 SECONDS (26.0-38.0) L 10/02/17 14:30 D-Dimer 1780 ng/mL (100-400) H 10/02/17 14:30 Sodium 135 mEq/L (136-145) L 10/04/17 06:00 Potassium 3.7 mEq/L (3.5-5.1) 10/04/17 06:00 Chloride 97 mEq/L (98-107) L 10/04/17 06:00 Carbon Dioxide 29.1 mEq/L (21.0-31.0) 10/04/17 06:00 Anion Gap 12.6 (7.0-16.0) 10/04/17 06:00 BUN 25 mg/dL (7-25) 10/04/17 06:00 Creatinine 1.4 mg/dL (0.6-1.2) H 10/04/17 06:00 Est GFR ( Amer) TNP 10/04/17 06:00 Est GFR (Non-Af Amer) TNP 10/04/17 06:00 BUN/Creatinine Ratio 17.9 10/04/17 06:00 Glucose 122 mg/dL (70-105) H 10/04/17 06:00 Whole Bld Lactic Acid 1.42 mmol/L (0.60-1.99) 10/02/17 14:30 Calcium 10.0 mg/dL (8.6-10.3) 10/04/17 06:00 Total Bilirubin 0.4 mg/dL (0.3-1.0) 10/02/17 14:30 AST 37 U/L (13-39) 10/02/17 14:30 ALT 12 U/L (7-52) 10/02/17 14:30 Alkaline Phosphatase 71 U/L (34-104) 10/02/17 14:30 Creatine Kinase 465 U/L (30-223) H 10/02/17 14:30 CK-MB (CK-2) 7.0 ng/mL (0.6-6.3) H 10/02/17 14:30 Troponin I 0.05 ng/mL (0.01-0.05) 10/04/17 06:00 B-Natriuretic Peptide 255.0 pg/mL (5.0-100.0) H 10/02/17 14:30 Total Protein 6.9 gm/dL (6.0-8.3) 10/02/17 14:30 Albumin 3.9 gm/dL (3.7-5.3) 10/02/17 14:30 Globulin 3.0 gm/dL 10/02/17 14:30 Albumin/Globulin Ratio 1.3 (1.0-1.8) 10/02/17 14:30 Triglycerides 155 mg/dL (<150) H 10/04/17 06:00 Cholesterol 204 mg/dL (<200) H 10/04/17 06:00 LDL Cholesterol Direct 133 mg/dL (75-193) 10/04/17 06:00 HDL Cholesterol 45 mg/dL (23-92) 10/04/17 06:00 Urine Source MIDSTREAM 10/02/17 16:20 Urine Color YELLOW 10/02/17 16:20 Urine Clarity CLEAR (CLEAR) 10/02/17 16:20 Urine pH 6.0 (4.6 - 8.0) 10/02/17 16:20 Ur Specific [place] <= 1.005 (1.005-1.030) 10/02/17 16:20 Urine Protein NEGATIVE mg/dL (NEGATIVE) 10/02/17 16:20 Urine Glucose (UA) NEGATIVE mg/dL (NEGATIVE) 10/02/17 16:20 Urine Ketones NEGATIVE mg/dL (NEGATIVE) 10/02/17 16:20 Urine Blood TRACE (NEGATIVE) 10/02/17 16:20 Urine Nitrate NEGATIVE (NEGATIVE) 10/02/17 16:20 Urine Bilirubin NEGATIVE (NEGATIVE) 10/02/17 16:20 Urine Urobilinogen 0.2 E.U./dL (0.2 - 1.0) 10/02/17 16:20 Ur Leukocyte Esterase TRACE (NEGATIVE) H 10/02/17 16:20 Urine RBC 0-2 /hpf (0-5) 10/02/17 16:20 Urine WBC 0-2 /hpf (0-5) 10/02/17 16:20 Ur Epithelial Cells RARE /lpf (FEW) 10/02/17 16:20 Urine Bacteria NONE SEEN /hpf (NONE SEEN) 10/02/17 16:20 - Physical Exam Vitals and I&O: Vital Signs Temp 97.8 F 10/06/17 16:00 Pulse 54 10/06/17 21:38 Resp 19 10/06/17 16:00 BP 132/76 10/06/17 21:38 Pulse Ox 97 10/06/17 08:00 Intake & Output 10/06/17 10/06/17 10/07/17 06:59 18:59 06:59 Intake Total 600 Balance 600 Weight (lbs) 65.317 kg 65.317 kg Intake: Oral 600 Other: # Voids 4 # Bowel Movements 1 Weight Source Bedscale Estimated Active Medications: Current Medications Acetaminophen/Hydrocodone Bitart ([place] 10 Mg/325 Mg) 1 tab PO Q6H PRN PRN Reason: pain Stop: 12/01/17 22:19 Last Admin: 10/06/17 13:48 Dose: 1 tab Alprazolam (Xanax) 0.25 mg PO Q8HR PRN; Protocol PRN Reason: Agitation Stop: 12/01/17 22:27 Last Admin: 10/06/17 13:49 Dose: 0.25 mg Aspirin (Aspirin Chewable) 81 mg PO DAILY SUJATA Stop: 12/02/17 08:59 Last Admin: 10/06/17 10:18 Dose: 81 mg Cholecalciferol (Vitamin D3) 1,000 iu PO DAILY SUJATA Stop: 12/02/17 08:59 Last Admin: 10/06/17 10:16 Dose: 1,000 iu Enoxaparin Sodium (Lovenox) 40 mg SUBQ DAILY SUJATA Stop: 12/01/17 22:41 Last Admin: 10/06/17 10:20 Dose: 40 mg Furosemide (Lasix) 20 mg IVP Q12H SUJATA Stop: 12/01/17 22:41 Last Admin: 10/06/17 10:14 Dose: 20 mg Hydralazine HCl (Apresoline) 50 mg PO TID SUJATA Stop: 12/02/17 13:59 Last Admin: 10/06/17 21:38 Dose: Not Given Levothyroxine Sodium (Synthroid) 0.075 mg PO QDAC SUJATA Stop: 12/02/17 07:29 Last Admin: 10/06/17 10:17 Dose: 0.075 mg Losartan Potassium (Cozaar) 100 mg PO DAILY SUJATA Stop: 12/03/17 08:59 Last Admin: 10/06/17 13:57 Dose: Not Given Metoprolol Tartrate (Lopressor) 25 mg PO BID SUJATA Stop: 12/01/17 22:29 Last Admin: 10/06/17 18:16 Dose: 25 mg Nifedipine (Procardia Xl) 90 mg PO DAILY [facility] Stop: 12/02/17 09:59 Last Admin: 10/06/17 13:58 Dose: Not Given Paroxetine HCl (Paxil) 40 mg PO DAILY SUJATA PRN Reason: Protocol Stop: 12/02/17 08:59 Last Admin: 10/06/17 10:15 Dose: 40 mg Quetiapine Fumarate (Seroquel) 25 mg PO HS SUJATA PRN Reason: Protocol Stop: 12/04/17 07:08 Last Admin: 10/06/17 21:31 Dose: 25 mg General: demented HEENT: anicteric sclerae, throat clear Neck: Supple, No JVD, No thyromegaly, +2 carotid pulse wo bruit, No LAD Lungs: CTAB Cardiovascular: RRR, Normal S1, Normal S2, without murmur Abdomen: non-tender, non-distended Extremities: clear Neurological: no change Internal Medicine Assmt/Plan - Assessment Assessment: 1.CHF. 2.UNCONTROLLED HTN 3.DEMENTIA. - Plan Plan: CONTINUE ON CURRENT MEDICATION AND DIET. Nutritional Asmnt/Malnutr-PDOC - Dietary Evaluation Malnutrition Findings (Please click <Entered> for more info): Nutritional Asmnt/Malnutrition Start: 10/06/17 13: 52 Text: Status: Complete Freq: Document 10/06/17 13:52 STAR (Rec: 10/06/17 14:00 ROHITH [email or web address]) Nutritional Asmnt/Malnutrition Patient General Information Nutritional Screening Moderate Risk Diagnosis CHF exacerbation Pertinent Medical Hx/Surgical Hx HTN, hypothyroidism, dementia, depression Subjective Information Pt seen sitting up in bed starting with lunch. Per [employer], pt had 50% of breakfast thir morning, PO intake improving. Per EMR, PO intake 0-10% yesterday 10/05. Pt stated no appetite, she has no buttom teeth, but denied any problem with chewing. Current Diet Order/ Nutrition Support cardiac Pertinent Medications vit D3, lasix, synthroid, seroquel Pertinent Labs 10/04 na 135, cl 97, cr 1.4, glucose 122 Nutritional Hx/Data Height 1.6 m Height (Calculated Centimeters) 160.0 Current Weight (lbs) 65.317 kg Weight (Calculated Kilograms) 65.3 Weight (Calculated Grams) 79127.3 [place] Body Weight 115 Body Mass Index (BMI) 25.4 Weight Status Overweight GI Symptoms GI Symptoms None Last BM 10/06 Difficult in: None Skin Integrity/Comment: skin tear to left arm Current %PO Poor (25-49%) Estimated Nutritional Goals BEE in Kcals: Using Current wt Calories/Kcals/Kg 25-30 Kcals Calculated 9146-5320 Protein: Using Current wt Protein g/k Protein Calculated 65 Fluid: ml 1625-1950ml (1ml/kcal) Nutritional Problem 1. Problem Problem inadequate food intake Etiology poor appetite Signs/Symptoms: PO intake <50% Malnutrition Alert Muscle Mass (Non-Severe) Mild Depletion Protein-Calorie Malnutrition N/A Is there a minimum of two criteria No selected? Query Text:Check all the applicable criteria. A minimum of two criteria are recommended for diagnosis of either severe or non-severe malnutrition. Intervention/Recommendation Comments 1. Continue with cardiac diet as ordered. Encouraged oral intake. If PO intake continue new, will consider adding nutrition supplements to increase nutrition intake. 2. Monitor PO intake, wt, labs and skin integrity 3. F/U as high risk in 2-3 days, 10/08-10/09 Expected Outcomes/Goals Expected Outcomes/Goals 1. PO intake to meet at least 75% of nutritional needs. 2. Wt stability, skin to remain intact, labs to approach WNL.
--- NOTE | 2017-10-07 03:28 | Progress Notes ---
DATE: PSYCHIATRIC PROGRESS NOTE SUBJECTIVE: Chart reviewed and the patient interviewed. Also discussed the patient's condition with the staff and reviewed records and labs. The patient remains confused and depressed. The patient also is anxious. She is interacting slightly more today. Also, the patient seems to be calm. Her family visited her yesterday, which makes her affect slightly brighter. At the same time, the patient continued to comply with taking her medications with no side effects of medications. ASSESSMENT: The patient is depressed, but seems to be slightly better and less confused. TREATMENT PLAN: Continue same medications and continue monitoring her behavior and followup. JOB# [id number]
[2017-10-07] MEDS: Levothyroxine 0.075 Mg Tab PO SCH (08:18)
[2017-10-07] MEDS: Enoxaparin 40 mg/0.4 mL 0.4mL Syr SUBQ SCH (10:08)
[2017-10-07] MEDS: Aspirin 81mg Chewable Tab PO SCH (10:08)
[2017-10-07] MEDS: NIFEdipine 30 mg ER Tab PO SCH (10:17)
--- NOTE | 2017-10-07 20:58 | Internal Medicine Prog Note ---
Internal Medicine Subjective - Subjective Service Date: 10/07/17 Patient seen and examined:: with staff (SHE IS LESS CONFUSSED) Patient is:: awake, verbal, in bed, confused Patient Complaints of:: other (NO SOB) Per staff patient has:: no adverse event Internal Medicine Objective - Results Result Diagrams: 10/04/17 06:00 10/04/17 06:00 Recent Labs: Laboratory Last Values WBC 8.3 Th/cmm (4.8-10.8) 10/04/17 06:00 RBC 5.00 Mil/cmm (3.80-5.20) 10/04/17 06:00 Hgb 14.2 gm/dL (12-16) 10/04/17 06:00 Hct 42.6 % (41.0-60) 10/04/17 06:00 MCV 85.1 fl (81-100) 10/04/17 06:00 MCH 28.4 pg (27.0-31.0) 10/04/17 06:00 MCHC Differential 33.4 pg (28.0-36.0) 10/04/17 06:00 RDW 14.9 % (11.5-20.0) 10/04/17 06:00 Plt Count 237 Th/cmm (150-400) 10/04/17 06:00 MPV 8.4 fl 10/04/17 06:00 Neutrophils % 54.9 % (40.0-80.0) 10/04/17 06:00 Lymphocytes % 30.8 % (20.0-50.0) 10/04/17 06:00 Monocytes % 10.3 % (2.0-10.0) H 10/04/17 06:00 Eosinophils % 3.0 % (0.0-5.0) 10/04/17 06:00 Basophils % 1.0 % (0.0-2.0) 10/04/17 06:00 PT 10.2 SECONDS (9.5-11.5) 10/02/17 14:30 INR 0.98 (0.5-1.4) 10/02/17 14:30 PTT (Actin FS) 23.2 SECONDS (26.0-38.0) L 10/02/17 14:30 D-Dimer 1780 ng/mL (100-400) H 10/02/17 14:30 Sodium 135 mEq/L (136-145) L 10/04/17 06:00 Potassium 3.7 mEq/L (3.5-5.1) 10/04/17 06:00 Chloride 97 mEq/L (98-107) L 10/04/17 06:00 Carbon Dioxide 29.1 mEq/L (21.0-31.0) 10/04/17 06:00 Anion Gap 12.6 (7.0-16.0) 10/04/17 06:00 BUN 25 mg/dL (7-25) 10/04/17 06:00 Creatinine 1.4 mg/dL (0.6-1.2) H 10/04/17 06:00 Est GFR ( Amer) TNP 10/04/17 06:00 Est GFR (Non-Af Amer) TNP 10/04/17 06:00 BUN/Creatinine Ratio 17.9 10/04/17 06:00 Glucose 122 mg/dL (70-105) H 10/04/17 06:00 Whole Bld Lactic Acid 1.42 mmol/L (0.60-1.99) 10/02/17 14:30 Calcium 10.0 mg/dL (8.6-10.3) 10/04/17 06:00 Total Bilirubin 0.4 mg/dL (0.3-1.0) 10/02/17 14:30 AST 37 U/L (13-39) 10/02/17 14:30 ALT 12 U/L (7-52) 10/02/17 14:30 Alkaline Phosphatase 71 U/L (34-104) 10/02/17 14:30 Creatine Kinase 465 U/L (30-223) H 10/02/17 14:30 CK-MB (CK-2) 7.0 ng/mL (0.6-6.3) H 10/02/17 14:30 Troponin I 0.05 ng/mL (0.01-0.05) 10/04/17 06:00 B-Natriuretic Peptide 255.0 pg/mL (5.0-100.0) H 10/02/17 14:30 Total Protein 6.9 gm/dL (6.0-8.3) 10/02/17 14:30 Albumin 3.9 gm/dL (3.7-5.3) 10/02/17 14:30 Globulin 3.0 gm/dL 10/02/17 14:30 Albumin/Globulin Ratio 1.3 (1.0-1.8) 10/02/17 14:30 Triglycerides 155 mg/dL (<150) H 10/04/17 06:00 Cholesterol 204 mg/dL (<200) H 10/04/17 06:00 LDL Cholesterol Direct 133 mg/dL (75-193) 10/04/17 06:00 HDL Cholesterol 45 mg/dL (23-92) 10/04/17 06:00 Urine Source MIDSTREAM 10/02/17 16:20 Urine Color YELLOW 10/02/17 16:20 Urine Clarity CLEAR (CLEAR) 10/02/17 16:20 Urine pH 6.0 (4.6 - 8.0) 10/02/17 16:20 Ur Specific [place] <= 1.005 (1.005-1.030) 10/02/17 16:20 Urine Protein NEGATIVE mg/dL (NEGATIVE) 10/02/17 16:20 Urine Glucose (UA) NEGATIVE mg/dL (NEGATIVE) 10/02/17 16:20 Urine Ketones NEGATIVE mg/dL (NEGATIVE) 10/02/17 16:20 Urine Blood TRACE (NEGATIVE) 10/02/17 16:20 Urine Nitrate NEGATIVE (NEGATIVE) 10/02/17 16:20 Urine Bilirubin NEGATIVE (NEGATIVE) 10/02/17 16:20 Urine Urobilinogen 0.2 E.U./dL (0.2 - 1.0) 10/02/17 16:20 Ur Leukocyte Esterase TRACE (NEGATIVE) H 10/02/17 16:20 Urine RBC 0-2 /hpf (0-5) 10/02/17 16:20 Urine WBC 0-2 /hpf (0-5) 10/02/17 16:20 Ur Epithelial Cells RARE /lpf (FEW) 10/02/17 16:20 Urine Bacteria NONE SEEN /hpf (NONE SEEN) 10/02/17 16:20 - Physical Exam Vitals and I&O: Vital Signs Temp 96.8 F 10/07/17 16:00 Pulse 58 10/07/17 17:21 Resp 19 10/07/17 16:00 BP 117/57 10/07/17 17:21 Pulse Ox 98 10/07/17 16:00 Intake & Output 10/07/17 10/07/17 10/08/17 06:59 18:59 06:59 Intake Total 550 700 Balance 550 700 Weight (lbs) 65.317 kg 65.317 kg Intake: Oral 550 700 Other: # Voids 3 4 # Bowel Movements 1 Weight Source Bedscale Bedscale Active Medications: Current Medications Acetaminophen/Hydrocodone Bitart ([place] 10 Mg/325 Mg) 1 tab PO Q6H PRN PRN Reason: pain Stop: 12/01/17 22:19 Last Admin: 10/06/17 13:48 Dose: 1 tab Alprazolam (Xanax) 0.25 mg PO Q8HR PRN; Protocol PRN Reason: Agitation Stop: 12/01/17 22:27 Last Admin: 10/06/17 22:46 Dose: 0.25 mg Aspirin (Aspirin Chewable) 81 mg PO DAILY SUJATA Stop: 12/02/17 08:59 Last Admin: 10/07/17 10:08 Dose: 81 mg Cholecalciferol (Vitamin D3) 1,000 iu PO DAILY SUJATA Stop: 12/02/17 08:59 Last Admin: 10/07/17 10:09 Dose: 1,000 iu Enoxaparin Sodium (Lovenox) 40 mg SUBQ DAILY SUJATA Stop: 12/01/17 22:41 Last Admin: 10/07/17 10:08 Dose: 40 mg Furosemide (Lasix) 20 mg IVP Q12H SUJATA Stop: 12/01/17 22:41 Last Admin: 10/07/17 10:08 Dose: 20 mg Hydralazine HCl (Apresoline) 50 mg PO TID SUJATA Stop: 12/02/17 13:59 Last Admin: 10/07/17 13:13 Dose: Not Given Levothyroxine Sodium (Synthroid) 0.075 mg PO QDAC SUJATA Stop: 12/02/17 07:29 Last Admin: 10/07/17 08:18 Dose: 0.075 mg Losartan Potassium (Cozaar) 100 mg PO DAILY SUJATA Stop: 12/03/17 08:59 Last Admin: 10/07/17 10:17 Dose: Not Given Metoprolol Tartrate (Lopressor) 25 mg PO BID SUJATA Stop: 12/01/17 22:29 Last Admin: 10/07/17 17:21 Dose: Not Given Nifedipine (Procardia Xl) 90 mg PO DAILY SUJATA Stop: 12/02/17 09:59 Last Admin: 10/07/17 10:17 Dose: Not Given Paroxetine HCl (Paxil) 40 mg PO DAILY SUJATA PRN Reason: Protocol Stop: 12/02/17 08:59 Last Admin: 10/07/17 10:09 Dose: 40 mg Quetiapine Fumarate (Seroquel) 25 mg PO HS SUJATA PRN Reason: Protocol Stop: 12/04/17 07:08 Last Admin: 10/07/17 20:49 Dose: 25 mg General: demented HEENT: anicteric sclerae, throat clear Neck: Supple, No JVD, No thyromegaly, +2 carotid pulse wo bruit, No LAD Lungs: CTAB Cardiovascular: RRR, Normal S1, Normal S2, without murmur Abdomen: non-tender, non-distended Extremities: clear Neurological: no change Internal Medicine Assmt/Plan - Assessment Assessment: 1.CHF. 2.UNCONTROLLED HTN 3.DEMENTIA. - Plan Plan: CONTINUE ON CURRENT MEDICATION AND DIET. Nutritional Asmnt/Malnutr-PDOC - Dietary Evaluation Malnutrition Findings (Please click <Entered> for more info): Nutritional Asmnt/Malnutrition Start: 10/06/17 13: 52 Text: Status: Complete Freq: Document 10/06/17 13:52 STAR (Rec: 10/06/17 14:00 STAR [email or web address]) Nutritional Asmnt/Malnutrition Patient General Information Nutritional Screening Moderate Risk Diagnosis CHF exacerbation Pertinent Medical Hx/Surgical Hx HTN, hypothyroidism, dementia, depression Subjective Information Pt seen sitting up in bed starting with lunch. 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 Per EMR, PO intake 0-10% yesterday 10/05. Pt stated no appetite, she has no buttom teeth, but denied any problem with chewing. Current Diet Order/ Nutrition Support cardiac Pertinent Medications vit D3, lasix, synthroid, seroquel Pertinent Labs 10/04 na 135, cl 97, cr 1.4, glucose 122 Nutritional Hx/Data Height 1.6 m Height (Calculated Centimeters) 160.0 Current Weight (lbs) 65.317 kg Weight (Calculated Kilograms) 65.3 Weight (Calculated Grams) 26438.3 [place] Body Weight 115 Body Mass Index (BMI) 25.4 Weight Status Overweight GI Symptoms GI Symptoms None Last BM 10/06 Difficult in: None Skin Integrity/Comment: skin tear to left arm Current %PO Poor (25-49%) Estimated Nutritional Goals BEE in Kcals: Using Current wt Calories/Kcals/Kg 25-30 Kcals Calculated 5371-4389 Protein: Using Current wt Protein g/k Protein Calculated 65 Fluid: ml 1625-1950ml (1ml/kcal) Nutritional Problem 1. Problem Problem inadequate food intake Etiology poor appetite Signs/Symptoms: PO intake <50% Malnutrition Alert Muscle Mass (Non-Severe) Mild Depletion Protein-Calorie Malnutrition N/A Is there a minimum of two criteria No selected? Query Text:Check all the applicable criteria. A minimum of two criteria are recommended for diagnosis of either severe or non-severe malnutrition. Intervention/Recommendation Comments 1. Continue with cardiac diet as ordered. Encouraged oral intake. If PO intake continue new, will consider adding nutrition supplements to increase nutrition intake. 2. Monitor PO intake, wt, labs and skin integrity 3. F/U as high risk in 2-3 days, 10/08-10/09 Expected Outcomes/Goals Expected Outcomes/Goals 1. PO intake to meet at least 75% of nutritional needs. 2. Wt stability, skin to remain intact, labs to approach WNL.
[2017-10-08] MEDS: Levothyroxine 0.075 Mg Tab PO SCH (07:35)
[2017-10-08] MEDS: NIFEdipine 30 mg ER Tab PO SCH (08:39)
[2017-10-08] MEDS: Aspirin 81mg Chewable Tab PO SCH (08:39)
[2017-10-08] MEDS: Enoxaparin 40 mg/0.4 mL 0.4mL Syr SUBQ SCH (08:40)
--- NOTE | 2017-10-08 22:04 | Internal Medicine Prog Note ---
Internal Medicine Subjective - Subjective Service Date: 10/08/17 Patient seen and examined:: with staff (she feels well.) Patient is:: awake, verbal, in bed, confused Patient Complaints of:: other (NO SOB) Per staff patient has:: no adverse event Internal Medicine Objective - Results Result Diagrams: 10/04/17 06:00 10/04/17 06:00 Recent Labs: Laboratory Last Values WBC 8.3 Th/cmm (4.8-10.8) 10/04/17 06:00 RBC 5.00 Mil/cmm (3.80-5.20) 10/04/17 06:00 Hgb 14.2 gm/dL (12-16) 10/04/17 06:00 Hct 42.6 % (41.0-60) 10/04/17 06:00 MCV 85.1 fl (81-100) 10/04/17 06:00 MCH 28.4 pg (27.0-31.0) 10/04/17 06:00 MCHC Differential 33.4 pg (28.0-36.0) 10/04/17 06:00 RDW 14.9 % (11.5-20.0) 10/04/17 06:00 Plt Count 237 Th/cmm (150-400) 10/04/17 06:00 MPV 8.4 fl 10/04/17 06:00 Neutrophils % 54.9 % (40.0-80.0) 10/04/17 06:00 Lymphocytes % 30.8 % (20.0-50.0) 10/04/17 06:00 Monocytes % 10.3 % (2.0-10.0) H 10/04/17 06:00 Eosinophils % 3.0 % (0.0-5.0) 10/04/17 06:00 Basophils % 1.0 % (0.0-2.0) 10/04/17 06:00 PT 10.2 SECONDS (9.5-11.5) 10/02/17 14:30 INR 0.98 (0.5-1.4) 10/02/17 14:30 PTT (Actin FS) 23.2 SECONDS (26.0-38.0) L 10/02/17 14:30 D-Dimer 1780 ng/mL (100-400) H 10/02/17 14:30 Sodium 135 mEq/L (136-145) L 10/04/17 06:00 Potassium 3.7 mEq/L (3.5-5.1) 10/04/17 06:00 Chloride 97 mEq/L (98-107) L 10/04/17 06:00 Carbon Dioxide 29.1 mEq/L (21.0-31.0) 10/04/17 06:00 Anion Gap 12.6 (7.0-16.0) 10/04/17 06:00 BUN 25 mg/dL (7-25) 10/04/17 06:00 Creatinine 1.4 mg/dL (0.6-1.2) H 10/04/17 06:00 Est GFR ( Amer) TNP 10/04/17 06:00 Est GFR (Non-Af Amer) TNP 10/04/17 06:00 BUN/Creatinine Ratio 17.9 10/04/17 06:00 Glucose 122 mg/dL (70-105) H 10/04/17 06:00 Whole Bld Lactic Acid 1.42 mmol/L (0.60-1.99) 10/02/17 14:30 Calcium 10.0 mg/dL (8.6-10.3) 10/04/17 06:00 Total Bilirubin 0.4 mg/dL (0.3-1.0) 10/02/17 14:30 AST 37 U/L (13-39) 10/02/17 14:30 ALT 12 U/L (7-52) 10/02/17 14:30 Alkaline Phosphatase 71 U/L (34-104) 10/02/17 14:30 Creatine Kinase 465 U/L (30-223) H 10/02/17 14:30 CK-MB (CK-2) 7.0 ng/mL (0.6-6.3) H 10/02/17 14:30 Troponin I 0.05 ng/mL (0.01-0.05) 10/04/17 06:00 B-Natriuretic Peptide 255.0 pg/mL (5.0-100.0) H 10/02/17 14:30 Total Protein 6.9 gm/dL (6.0-8.3) 10/02/17 14:30 Albumin 3.9 gm/dL (3.7-5.3) 10/02/17 14:30 Globulin 3.0 gm/dL 10/02/17 14:30 Albumin/Globulin Ratio 1.3 (1.0-1.8) 10/02/17 14:30 Triglycerides 155 mg/dL (<150) H 10/04/17 06:00 Cholesterol 204 mg/dL (<200) H 10/04/17 06:00 LDL Cholesterol Direct 133 mg/dL (75-193) 10/04/17 06:00 HDL Cholesterol 45 mg/dL (23-92) 10/04/17 06:00 Urine Source MIDSTREAM 10/02/17 16:20 Urine Color YELLOW 10/02/17 16:20 Urine Clarity CLEAR (CLEAR) 10/02/17 16:20 Urine pH 6.0 (4.6 - 8.0) 10/02/17 16:20 Ur Specific [place] <= 1.005 (1.005-1.030) 10/02/17 16:20 Urine Protein NEGATIVE mg/dL (NEGATIVE) 10/02/17 16:20 Urine Glucose (UA) NEGATIVE mg/dL (NEGATIVE) 10/02/17 16:20 Urine Ketones NEGATIVE mg/dL (NEGATIVE) 10/02/17 16:20 Urine Blood TRACE (NEGATIVE) 10/02/17 16:20 Urine Nitrate NEGATIVE (NEGATIVE) 10/02/17 16:20 Urine Bilirubin NEGATIVE (NEGATIVE) 10/02/17 16:20 Urine Urobilinogen 0.2 E.U./dL (0.2 - 1.0) 10/02/17 16:20 Ur Leukocyte Esterase TRACE (NEGATIVE) H 10/02/17 16:20 Urine RBC 0-2 /hpf (0-5) 10/02/17 16:20 Urine WBC 0-2 /hpf (0-5) 10/02/17 16:20 Ur Epithelial Cells RARE /lpf (FEW) 10/02/17 16:20 Urine Bacteria NONE SEEN /hpf (NONE SEEN) 10/02/17 16:20 - Physical Exam Vitals and I&O: Vital Signs Temp 97.4 F 10/08/17 16:00 Pulse 71 10/08/17 21:01 Resp 16 10/08/17 16:00 BP 106/53 10/08/17 21:01 Pulse Ox 98 10/08/17 16:00 Intake & Output 10/08/17 10/08/17 10/09/17 06:59 18:59 06:59 Intake Total 600 600 Balance 600 600 Weight (lbs) 65.317 kg 65.317 kg Intake: Oral 600 600 Other: # Voids 3 4 # Bowel Movements 1 Stool Characteristics Soft Weight Source Bedscale Bedscale Active Medications: Current Medications Acetaminophen/Hydrocodone Bitart ([place] 10 Mg/325 Mg) 1 tab PO Q6H PRN PRN Reason: pain Stop: 12/01/17 22:19 Last Admin: 10/06/17 13:48 Dose: 1 tab Alprazolam (Xanax) 0.25 mg PO Q8HR PRN; Protocol PRN Reason: Agitation Stop: 12/01/17 22:27 Last Admin: 10/07/17 22:51 Dose: 0.25 mg Aspirin (Aspirin Chewable) 81 mg PO DAILY SUJATA Stop: 12/02/17 08:59 Last Admin: 10/08/17 08:39 Dose: 81 mg Cholecalciferol (Vitamin D3) 1,000 iu PO DAILY SUJATA Stop: 12/02/17 08:59 Last Admin: 10/08/17 08:39 Dose: 1,000 iu Enoxaparin Sodium (Lovenox) 40 mg SUBQ DAILY SUJATA Stop: 12/01/17 22:41 Last Admin: 10/08/17 08:40 Dose: 40 mg Furosemide (Lasix) 20 mg IVP Q12H SUJATA Stop: 12/01/17 22:41 Last Admin: 10/08/17 11:18 Dose: 20 mg Hydralazine HCl (Apresoline) 50 mg PO TID SUJATA Stop: 12/02/17 13:59 Last Admin: 10/08/17 21:01 Dose: Not Given Levothyroxine Sodium (Synthroid) 0.075 mg PO QDAC SUJATA Stop: 12/02/17 07:29 Last Admin: 10/08/17 07:35 Dose: 0.075 mg Losartan Potassium (Cozaar) 100 mg PO DAILY SUJATA Stop: 12/03/17 08:59 Last Admin: 10/08/17 08:39 Dose: 100 mg Metoprolol Tartrate (Lopressor) 25 mg PO BID SUJATA Stop: 12/01/17 22:29 Last Admin: 10/08/17 16:13 Dose: Not Given Nifedipine (Procardia Xl) 90 mg PO DAILY SUJATA Stop: 12/02/17 09:59 Last Admin: 10/08/17 08:39 Dose: 90 mg Paroxetine HCl (Paxil) 40 mg PO DAILY SUJATA PRN Reason: Protocol Stop: 12/02/17 08:59 Last Admin: 10/08/17 08:39 Dose: 40 mg Quetiapine Fumarate (Seroquel) 25 mg PO HS SUJATA PRN Reason: Protocol Stop: 12/04/17 07:08 Last Admin: 10/08/17 20:58 Dose: 25 mg General: demented HEENT: anicteric sclerae, throat clear Neck: Supple, No JVD, No thyromegaly, +2 carotid pulse wo bruit, No LAD Lungs: CTAB Cardiovascular: RRR, Normal S1, Normal S2, without murmur Abdomen: non-tender, non-distended Extremities: clear Neurological: no change Internal Medicine Assmt/Plan - Assessment Assessment: 1.CHF. 2.UNCONTROLLED HTN 3.DEMENTIA. - Plan Plan: CONTINUE ON CURRENT MEDICATION AND DIET. Nutritional Asmnt/Malnutr-PDOC - Dietary Evaluation Malnutrition Findings (Please click <Entered> for more info): Nutritional Asmnt/Malnutrition Start: 10/06/17 13: 52 Text: Status: Complete Freq: Document 10/06/17 13:52 MARC (Rec: 10/06/17 14:00 ROXANA [email or web address]) Nutritional Asmnt/Malnutrition Patient General Information Nutritional Screening Moderate Risk Diagnosis CHF exacerbation Pertinent Medical Hx/Surgical Hx HTN, hypothyroidism, dementia, depression Subjective Information Pt seen sitting up in bed starting with lunch. 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 Per EMR, PO intake 0-10% yesterday 10/05. Pt stated no appetite, she has no buttom teeth, but denied any problem with chewing. Current Diet Order/ Nutrition Support cardiac Pertinent Medications vit D3, lasix, synthroid, seroquel Pertinent Labs 10/04 na 135, cl 97, cr 1.4, glucose 122 Nutritional Hx/Data Height 1.6 m Height (Calculated Centimeters) 160.0 Current Weight (lbs) 65.317 kg Weight (Calculated Kilograms) 65.3 Weight (Calculated Grams) 28573.3 [place] Body Weight 115 Body Mass Index (BMI) 25.4 Weight Status Overweight GI Symptoms GI Symptoms None Last BM 10/06 Difficult in: None Skin Integrity/Comment: skin tear to left arm Current %PO Poor (25-49%) Estimated Nutritional Goals BEE in Kcals: Using Current wt Calories/Kcals/Kg 25-30 Kcals Calculated 8114-9931 Protein: Using Current wt Protein g/k Protein Calculated 65 Fluid: ml 1625-1950ml (1ml/kcal) Nutritional Problem 1. Problem Problem inadequate food intake Etiology poor appetite Signs/Symptoms: PO intake <50% Malnutrition Alert Muscle Mass (Non-Severe) Mild Depletion Protein-Calorie Malnutrition N/A Is there a minimum of two criteria No selected? Query Text:Check all the applicable criteria. A minimum of two criteria are recommended for diagnosis of either severe or non-severe malnutrition. Intervention/Recommendation Comments 1. Continue with cardiac diet as ordered. Encouraged oral intake. If PO intake continue new, will consider adding nutrition supplements to increase nutrition intake. 2. Monitor PO intake, wt, labs and skin integrity 3. F/U as high risk in 2-3 days, 10/08-10/09 Expected Outcomes/Goals Expected Outcomes/Goals 1. PO intake to meet at least 75% of nutritional needs. 2. Wt stability, skin to remain intact, labs to approach WNL.
--- NOTE | 2017-10-09 08:26 | Progress Notes ---
DATE: 10/07/2017 Chart reviewed and the patient interviewed. Also discussed the patient's condition with the staff and reviewed records and labs. The patient is still agitated and is still in angry and in irritable mood. The patient also is still depressed and she still wants to be left alone and have difficulty expressing herself or her feelings. On the other hand, the patient seems to be slightly having brighter affect and easier to redirect her. The patient also continued to work on her relationship with her family and her family brought her nice flower arrangement. At the same time, we will continue monitoring her behavior and continue adjusting psychotropic medications and work on her ineffective coping. JOB# [id number]
[2017-10-09] MEDS: Enoxaparin 40 mg/0.4 mL 0.4mL Syr SUBQ SCH (10:05)
[2017-10-09] MEDS: NIFEdipine 30 mg ER Tab PO SCH (10:06)
[2017-10-09] MEDS: Aspirin 81mg Chewable Tab PO SCH (10:08)
[2017-10-09] MEDS: Levothyroxine 0.075 Mg Tab PO SCH (14:23)
--- NOTE | 2017-10-09 19:16 | Internal Medicine Prog Note ---
Internal Medicine Subjective - Subjective Service Date: 10/09/17 Patient is:: awake, verbal, in bed, confused Patient Complaints of:: other (NO SOB) Per staff patient has:: no adverse event Internal Medicine Objective - Results Result Diagrams: 10/04/17 06:00 10/04/17 06:00 Recent Labs: Laboratory Last Values WBC 8.3 Th/cmm (4.8-10.8) 10/04/17 06:00 RBC 5.00 Mil/cmm (3.80-5.20) 10/04/17 06:00 Hgb 14.2 gm/dL (12-16) 10/04/17 06:00 Hct 42.6 % (41.0-60) 10/04/17 06:00 MCV 85.1 fl (81-100) 10/04/17 06:00 MCH 28.4 pg (27.0-31.0) 10/04/17 06:00 MCHC Differential 33.4 pg (28.0-36.0) 10/04/17 06:00 RDW 14.9 % (11.5-20.0) 10/04/17 06:00 Plt Count 237 Th/cmm (150-400) 10/04/17 06:00 MPV 8.4 fl 10/04/17 06:00 Neutrophils % 54.9 % (40.0-80.0) 10/04/17 06:00 Lymphocytes % 30.8 % (20.0-50.0) 10/04/17 06:00 Monocytes % 10.3 % (2.0-10.0) H 10/04/17 06:00 Eosinophils % 3.0 % (0.0-5.0) 10/04/17 06:00 Basophils % 1.0 % (0.0-2.0) 10/04/17 06:00 PT 10.2 SECONDS (9.5-11.5) 10/02/17 14:30 INR 0.98 (0.5-1.4) 10/02/17 14:30 PTT (Actin FS) 23.2 SECONDS (26.0-38.0) L 10/02/17 14:30 D-Dimer 1780 ng/mL (100-400) H 10/02/17 14:30 Sodium 135 mEq/L (136-145) L 10/04/17 06:00 Potassium 3.7 mEq/L (3.5-5.1) 10/04/17 06:00 Chloride 97 mEq/L (98-107) L 10/04/17 06:00 Carbon Dioxide 29.1 mEq/L (21.0-31.0) 10/04/17 06:00 Anion Gap 12.6 (7.0-16.0) 10/04/17 06:00 BUN 25 mg/dL (7-25) 10/04/17 06:00 Creatinine 1.4 mg/dL (0.6-1.2) H 10/04/17 06:00 Est GFR ( Amer) TNP 10/04/17 06:00 Est GFR (Non-Af Amer) TNP 10/04/17 06:00 BUN/Creatinine Ratio 17.9 10/04/17 06:00 Glucose 122 mg/dL (70-105) H 10/04/17 06:00 Whole Bld Lactic Acid 1.42 mmol/L (0.60-1.99) 10/02/17 14:30 Calcium 10.0 mg/dL (8.6-10.3) 10/04/17 06:00 Total Bilirubin 0.4 mg/dL (0.3-1.0) 10/02/17 14:30 AST 37 U/L (13-39) 10/02/17 14:30 ALT 12 U/L (7-52) 10/02/17 14:30 Alkaline Phosphatase 71 U/L (34-104) 10/02/17 14:30 Creatine Kinase 465 U/L (30-223) H 10/02/17 14:30 CK-MB (CK-2) 7.0 ng/mL (0.6-6.3) H 10/02/17 14:30 Troponin I 0.05 ng/mL (0.01-0.05) 10/04/17 06:00 B-Natriuretic Peptide 255.0 pg/mL (5.0-100.0) H 10/02/17 14:30 Total Protein 6.9 gm/dL (6.0-8.3) 10/02/17 14:30 Albumin 3.9 gm/dL (3.7-5.3) 10/02/17 14:30 Globulin 3.0 gm/dL 10/02/17 14:30 Albumin/Globulin Ratio 1.3 (1.0-1.8) 10/02/17 14:30 Triglycerides 155 mg/dL (<150) H 10/04/17 06:00 Cholesterol 204 mg/dL (<200) H 10/04/17 06:00 LDL Cholesterol Direct 133 mg/dL (75-193) 10/04/17 06:00 HDL Cholesterol 45 mg/dL (23-92) 10/04/17 06:00 Urine Source MIDSTREAM 10/02/17 16:20 Urine Color YELLOW 10/02/17 16:20 Urine Clarity CLEAR (CLEAR) 10/02/17 16:20 Urine pH 6.0 (4.6 - 8.0) 10/02/17 16:20 Ur Specific [place] <= 1.005 (1.005-1.030) 10/02/17 16:20 Urine Protein NEGATIVE mg/dL (NEGATIVE) 10/02/17 16:20 Urine Glucose (UA) NEGATIVE mg/dL (NEGATIVE) 10/02/17 16:20 Urine Ketones NEGATIVE mg/dL (NEGATIVE) 10/02/17 16:20 Urine Blood TRACE (NEGATIVE) 10/02/17 16:20 Urine Nitrate NEGATIVE (NEGATIVE) 10/02/17 16:20 Urine Bilirubin NEGATIVE (NEGATIVE) 10/02/17 16:20 Urine Urobilinogen 0.2 E.U./dL (0.2 - 1.0) 10/02/17 16:20 Ur Leukocyte Esterase TRACE (NEGATIVE) H 10/02/17 16:20 Urine RBC 0-2 /hpf (0-5) 10/02/17 16:20 Urine WBC 0-2 /hpf (0-5) 10/02/17 16:20 Ur Epithelial Cells RARE /lpf (FEW) 10/02/17 16:20 Urine Bacteria NONE SEEN /hpf (NONE SEEN) 10/02/17 16:20 - Physical Exam Vitals and I&O: Vital Signs Temp 97.3 F 10/09/17 15:22 Pulse 60 10/09/17 18:23 Resp 20 10/09/17 15:22 BP 108/58 10/09/17 18:23 Pulse Ox 95 10/09/17 15:22 Intake & Output 10/09/17 10/09/17 10/10/17 06:59 18:59 06:59 Intake Total 650 800 Output Total 1 Balance 650 799 Weight (lbs) 65.317 kg 65.317 kg Intake: Oral 650 800 Output: Stool 1 Other: # Voids 3 3 # Bowel Movements 3 Weight Source Bedscale Bedscale Active Medications: Current Medications Acetaminophen/Hydrocodone Bitart ([place] 10 Mg/325 Mg) 1 tab PO Q6H PRN PRN Reason: pain Stop: 12/01/17 22:19 Last Admin: 10/06/17 13:48 Dose: 1 tab Alprazolam (Xanax) 0.25 mg PO Q8HR PRN; Protocol PRN Reason: Agitation Stop: 12/01/17 22:27 Last Admin: 10/08/17 22:17 Dose: 0.25 mg Aspirin (Aspirin Chewable) 81 mg PO DAILY [facility] Stop: 12/02/17 08:59 Last Admin: 10/09/17 10:08 Dose: 81 mg Cholecalciferol (Vitamin D3) 1,000 iu PO DAILY [facility] Stop: 12/02/17 08:59 Last Admin: 10/09/17 10:08 Dose: 1,000 iu Enoxaparin Sodium (Lovenox) 40 mg SUBQ DAILY [facility] Stop: 12/01/17 22:41 Last Admin: 10/09/17 10:05 Dose: 40 mg Furosemide (Lasix) 20 mg IVP Q12H [facility] Stop: 12/01/17 22:41 Last Admin: 10/09/17 10:08 Dose: 20 mg Hydralazine HCl (Apresoline) 50 mg PO TID [facility] Stop: 12/02/17 13:59 Last Admin: 10/09/17 15:21 Dose: Not Given Levothyroxine Sodium (Synthroid) 0.075 mg PO QDAC [facility] Stop: 12/02/17 07:29 Last Admin: 10/09/17 14:23 Dose: Not Given Losartan Potassium (Cozaar) 100 mg PO DAILY [facility] Stop: 12/03/17 08:59 Last Admin: 10/09/17 10:06 Dose: 100 mg Metoprolol Tartrate (Lopressor) 25 mg PO BID [facility] Stop: 12/01/17 22:29 Last Admin: 10/09/17 18:23 Dose: Not Given Nifedipine (Procardia Xl) 90 mg PO DAILY [facility] Stop: 12/02/17 09:59 Last Admin: 10/09/17 10:06 Dose: 90 mg Paroxetine HCl (Paxil) 40 mg PO DAILY [facility] PRN Reason: Protocol Stop: 12/02/17 08:59 Last Admin: 10/09/17 10:05 Dose: 40 mg Quetiapine Fumarate (Seroquel) 25 mg PO HS [facility] PRN Reason: Protocol Stop: 12/04/17 07:08 Last Admin: 10/08/17 20:58 Dose: 25 mg General: demented HEENT: anicteric sclerae, throat clear Neck: Supple, No JVD, No thyromegaly, +2 carotid pulse wo bruit, No LAD Lungs: CTAB Cardiovascular: RRR, Normal S1, Normal S2, without murmur Abdomen: non-tender, non-distended Extremities: clear Neurological: no change Internal Medicine Assmt/Plan - Assessment Assessment: 1.CHF. 2.UNCONTROLLED HTN 3.DEMENTIA. - Plan Plan: CONTINUE ON CURRENT MEDICATION AND DIET. Nutritional Asmnt/Malnutr-PDOC - Dietary Evaluation Malnutrition Findings (Please click <Entered> for more info): Nutritional Asmnt/Malnutrition Start: 10/06/17 13: 52 Text: Status: Complete Freq: Document 10/06/17 13:52 [facility] (Rec: 10/06/17 14:00 [email or web address]) Nutritional Asmnt/Malnutrition Patient General Information Nutritional Screening Moderate Risk Diagnosis CHF exacerbation Pertinent Medical Hx/Surgical Hx HTN, hypothyroidism, dementia, depression Subjective Information Pt seen sitting up in bed starting with lunch. Per [employer], pt had 50% of breakfast thir morning, PO intake improving. Per EMR, PO intake 0-10% yesterday 10/05. Pt stated no appetite, she has no buttom teeth, but denied any problem with chewing. Current Diet Order/ Nutrition Support cardiac Pertinent Medications vit D3, lasix, synthroid, seroquel Pertinent Labs 10/04 na 135, cl 97, cr 1.4, glucose 122 Nutritional Hx/Data Height 1.6 m Height (Calculated Centimeters) 160.0 Current Weight (lbs) 65.317 kg Weight (Calculated Kilograms) 65.3 Weight (Calculated Grams) 66602.3 [place] Body Weight 115 Body Mass Index (BMI) 25.4 Weight Status Overweight GI Symptoms GI Symptoms None Last BM 10/06 Difficult in: None Skin Integrity/Comment: skin tear to left arm Current %PO Poor (25-49%) Estimated Nutritional Goals BEE in Kcals: Using Current wt Calories/Kcals/Kg 25-30 Kcals Calculated 8503-0044 Protein: Using Current wt Protein g/k Protein Calculated 65 Fluid: ml 1625-1950ml (1ml/kcal) Nutritional Problem 1. Problem Problem inadequate food intake Etiology poor appetite Signs/Symptoms: PO intake <50% Malnutrition Alert Muscle Mass (Non-Severe) Mild Depletion Protein-Calorie Malnutrition N/A Is there a minimum of two criteria No selected? Query Text:Check all the applicable criteria. A minimum of two criteria are recommended for diagnosis of either severe or non-severe malnutrition. Intervention/Recommendation Comments 1. Continue with cardiac diet as ordered. Encouraged oral intake. If PO intake continue new, will consider adding nutrition supplements to increase nutrition intake. 2. Monitor PO intake, wt, labs and skin integrity 3. F/U as high risk in 2-3 days, 10/08-10/09 Expected Outcomes/Goals Expected Outcomes/Goals 1. PO intake to meet at least 75% of nutritional needs. 2. Wt stability, skin to remain intact, labs to approach WNL.
--- NOTE | 2017-10-10 00:05 | Progress Notes ---
DATE: 10/09/2017 SUBJECTIVE: Case was discussed with staff of the patient and reviewed records. Covering for Dr. Martinez. The patient was admitted on 10/02/2017 to the medical floor because of shortness of breath. She has been agitated. The patient was walking naked. She has been restless, agitated. Also the patient at home has been paranoid, thinking that people will take over her things according to the daughter. She has been concerned because there are younger children at home and they are concerned about them. She seems to have a history of depression. She is on Paxil. 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 He added to the patient's current medication alprazolam 0.25 mg every 8 hours as needed. She is on ,cholecalciferol 1000 international units daily, aspirin 81 mg daily, Lovenox 40 mg subcutaneous daily, Lasix 20 mg twice a day, hydralazine 50 mg 3 times a day, hydrocodone every 6 hours as needed, levothyroxine 0.075 mg daily, losartan 100 mg daily, metoprolol 25 mg twice a day, nifedipine 90 mg daily, Paxil 40 mg daily and Seroquel 25 mg at bedtime. The patient continues to have episodes of agitation, anger outbursts, irritability, continues to be depressed. She likes to be left alone, has difficulty expressing herself and her feelings; however, she is slightly better compared to Dr. Martinez's notes. Thank you very much for allowing me to participate in the care of this most interesting lady. JOB# [id number]
[2017-10-10] MEDS: Levothyroxine 0.075 Mg Tab PO SCH (06:37)
[2017-10-10] MEDS: Enoxaparin 40 mg/0.4 mL 0.4mL Syr SUBQ SCH (09:39)
[2017-10-10] MEDS: NIFEdipine 30 mg ER Tab PO SCH (09:39)
[2017-10-10] MEDS: Aspirin 81mg Chewable Tab PO SCH (09:39)
--- NOTE | 2017-10-10 15:22 | General Progress Note ---
Subjective - Review of Systems Service Date: 10/10/17 Subjective: resting comfortably no distress confused Objective - Results Result Diagrams: 10/04/17 06:00 10/04/17 06:00 Recent Labs: Laboratory Last Values WBC 8.3 Th/cmm (4.8-10.8) 10/04/17 06:00 RBC 5.00 Mil/cmm (3.80-5.20) 10/04/17 06:00 Hgb 14.2 gm/dL (12-16) 10/04/17 06:00 Hct 42.6 % (41.0-60) 10/04/17 06:00 MCV 85.1 fl (81-100) 10/04/17 06:00 MCH 28.4 pg (27.0-31.0) 10/04/17 06:00 MCHC Differential 33.4 pg (28.0-36.0) 10/04/17 06:00 RDW 14.9 % (11.5-20.0) 10/04/17 06:00 Plt Count 237 Th/cmm (150-400) 10/04/17 06:00 MPV 8.4 fl 10/04/17 06:00 Neutrophils % 54.9 % (40.0-80.0) 10/04/17 06:00 Lymphocytes % 30.8 % (20.0-50.0) 10/04/17 06:00 Monocytes % 10.3 % (2.0-10.0) H 10/04/17 06:00 Eosinophils % 3.0 % (0.0-5.0) 10/04/17 06:00 Basophils % 1.0 % (0.0-2.0) 10/04/17 06:00 PT 10.2 SECONDS (9.5-11.5) 10/02/17 14:30 INR 0.98 (0.5-1.4) 10/02/17 14:30 PTT (Actin FS) 23.2 SECONDS (26.0-38.0) L 10/02/17 14:30 D-Dimer 1780 ng/mL (100-400) H 10/02/17 14:30 Sodium 135 mEq/L (136-145) L 10/04/17 06:00 Potassium 3.7 mEq/L (3.5-5.1) 10/04/17 06:00 Chloride 97 mEq/L (98-107) L 10/04/17 06:00 Carbon Dioxide 29.1 mEq/L (21.0-31.0) 10/04/17 06:00 Anion Gap 12.6 (7.0-16.0) 10/04/17 06:00 BUN 25 mg/dL (7-25) 10/04/17 06:00 Creatinine 1.4 mg/dL (0.6-1.2) H 10/04/17 06:00 Est GFR ( Amer) TNP 10/04/17 06:00 Est GFR (Non-Af Amer) TNP 10/04/17 06:00 BUN/Creatinine Ratio 17.9 10/04/17 06:00 Glucose 122 mg/dL (70-105) H 10/04/17 06:00 Whole Bld Lactic Acid 1.42 mmol/L (0.60-1.99) 10/02/17 14:30 Calcium 10.0 mg/dL (8.6-10.3) 10/04/17 06:00 Total Bilirubin 0.4 mg/dL (0.3-1.0) 10/02/17 14:30 AST 37 U/L (13-39) 10/02/17 14:30 ALT 12 U/L (7-52) 10/02/17 14:30 Alkaline Phosphatase 71 U/L (34-104) 10/02/17 14:30 Creatine Kinase 465 U/L (30-223) H 10/02/17 14:30 CK-MB (CK-2) 7.0 ng/mL (0.6-6.3) H 10/02/17 14:30 Troponin I 0.05 ng/mL (0.01-0.05) 10/04/17 06:00 B-Natriuretic Peptide 255.0 pg/mL (5.0-100.0) H 10/02/17 14:30 Total Protein 6.9 gm/dL (6.0-8.3) 10/02/17 14:30 Albumin 3.9 gm/dL (3.7-5.3) 10/02/17 14:30 Globulin 3.0 gm/dL 10/02/17 14:30 Albumin/Globulin Ratio 1.3 (1.0-1.8) 10/02/17 14:30 Triglycerides 155 mg/dL (<150) H 10/04/17 06:00 Cholesterol 204 mg/dL (<200) H 10/04/17 06:00 LDL Cholesterol Direct 133 mg/dL (75-193) 10/04/17 06:00 HDL Cholesterol 45 mg/dL (23-92) 10/04/17 06:00 Urine Source MIDSTREAM 10/02/17 16:20 Urine Color YELLOW 10/02/17 16:20 Urine Clarity CLEAR (CLEAR) 10/02/17 16:20 Urine pH 6.0 (4.6 - 8.0) 10/02/17 16:20 Ur Specific [place] <= 1.005 (1.005-1.030) 10/02/17 16:20 Urine Protein NEGATIVE mg/dL (NEGATIVE) 10/02/17 16:20 Urine Glucose (UA) NEGATIVE mg/dL (NEGATIVE) 10/02/17 16:20 Urine Ketones NEGATIVE mg/dL (NEGATIVE) 10/02/17 16:20 Urine Blood TRACE (NEGATIVE) 10/02/17 16:20 Urine Nitrate NEGATIVE (NEGATIVE) 10/02/17 16:20 Urine Bilirubin NEGATIVE (NEGATIVE) 10/02/17 16:20 Urine Urobilinogen 0.2 E.U./dL (0.2 - 1.0) 10/02/17 16:20 Ur Leukocyte Esterase TRACE (NEGATIVE) H 10/02/17 16:20 Urine RBC 0-2 /hpf (0-5) 10/02/17 16:20 Urine WBC 0-2 /hpf (0-5) 10/02/17 16:20 Ur Epithelial Cells RARE /lpf (FEW) 10/02/17 16:20 Urine Bacteria NONE SEEN /hpf (NONE SEEN) 10/02/17 16:20 - Physical Exam Vitals and I&O: Vital Signs Temp 97.1 F 10/10/17 12:00 Pulse 65 10/10/17 12:19 Resp 18 10/10/17 12:00 BP 174/72 10/10/17 12:19 Pulse Ox 97 10/10/17 12:00 Intake & Output 10/09/17 10/10/17 10/10/17 18:59 06:59 18:59 Intake Total 800 360 Output Total 1 Balance 799 360 Weight (lbs) 65.317 kg 61.235 kg Intake: Oral 800 360 Output: Stool 1 Other: # Voids 3 3 Weight Source Bedscale Bedscale Active Medications: Current Medications Aspirin (Aspirin Chewable) 81 mg PO DAILY [facility] Stop: 12/02/17 08:59 Last Admin: 10/10/17 09:39 Dose: 81 mg Cholecalciferol (Vitamin D3) 1,000 iu PO DAILY [facility] Stop: 12/02/17 08:59 Last Admin: 10/10/17 09:39 Dose: 1,000 iu Enoxaparin Sodium (Lovenox) 40 mg SUBQ DAILY [facility] Stop: 12/01/17 22:41 Last Admin: 10/10/17 09:39 Dose: 40 mg Furosemide (Lasix) 20 mg IVP Q12H [facility] Stop: 12/01/17 22:41 Last Admin: 10/10/17 09:52 Dose: 20 mg Hydralazine HCl (Apresoline) 50 mg PO TID [facility] Stop: 12/02/17 13:59 Last Admin: 10/10/17 14:23 Dose: Not Given Levothyroxine Sodium (Synthroid) 0.075 mg PO QDAC [facility] Stop: 12/02/17 07:29 Last Admin: 10/10/17 06:37 Dose: 0.075 mg Losartan Potassium (Cozaar) 100 mg PO DAILY [facility] Stop: 12/03/17 08:59 Last Admin: 10/10/17 12:18 Dose: 100 mg Metoprolol Tartrate (Lopressor) 25 mg PO BID [facility] Stop: 12/01/17 22:29 Last Admin: 10/10/17 12:19 Dose: 25 mg Nifedipine (Procardia Xl) 90 mg PO DAILY [facility] Stop: 12/02/17 09:59 Last Admin: 10/10/17 09:39 Dose: Not Given Paroxetine HCl (Paxil) 40 mg PO DAILY [facility] PRN Reason: Protocol Stop: 12/02/17 08:59 Last Admin: 10/10/17 09:39 Dose: 40 mg Quetiapine Fumarate (Seroquel) 25 mg PO HS [facility] PRN Reason: Protocol Stop: 12/04/17 07:08 Last Admin: 10/09/17 20:37 Dose: 25 mg General: No acute distress HEENT: Atraumatic Neck: Supple, JVD Cardiovascular: Regular rate, Normal S1, Normal S2 Lungs: Clear to auscultation Abdomen: Bowel sounds, Soft Assessment/Plan - Problem List Patient Problems: All Active Problems DYSPNEA WITH EXTREMITY WEAKNESS (Acute) - Assessment Assessment: 1.CHF. 2.UNCONTROLLED HTN 3.DEMENTIA. - Plan Plan: cont current treatment Nutritional Asmnt/Malnutr-PDOC - Dietary Evaluation Malnutrition Findings (Please click <Entered> for more info): Nutritional Asmnt/Malnutrition Start: 10/06/17 13: 52 Text: Status: Complete Freq: Document 10/06/17 13:52 [facility] (Rec: 10/06/17 14:00 [email or web address] Nutritional Asmnt/Malnutrition Patient General Information Nutritional Screening Moderate Risk Diagnosis CHF exacerbation Pertinent Medical Hx/Surgical Hx HTN, hypothyroidism, dementia, depression Subjective Information Pt seen sitting up in bed starting with lunch. Per [employer]ER[employer]ER, pt had 50% of breakfast thir morning, PO intake improving. Per EMR, PO intake 0-10% yesterday 10/05. Pt stated no appetite, she has no buttom teeth, but denied any problem with chewing. Current Diet Order/ Nutrition Support cardiac Pertinent Medications vit D3, lasix, synthroid, seroquel Pertinent Labs 10/04 na 135, cl 97, cr 1.4, glucose 122 Nutritional Hx/Data Height 1.6 m Height (Calculated Centimeters) 160.0 Current Weight (lbs) 65.317 kg Weight (Calculated Kilograms) 65.3 Weight (Calculated Grams) 18489.3 [place] Body Weight 115 Body Mass Index (BMI) 25.4 Weight Status Overweight GI Symptoms GI Symptoms None Last BM 8 Difficult in: None Skin Integrity/Comment: skin tear to left arm Current %PO Poor (25-49%) Estimated Nutritional Goals BEE in Kcals: Using Current wt Calories/Kcals/Kg 25-30 Kcals Calculated 3331-4431 Protein: Using Current wt Protein g/k Protein Calculated 65 Fluid: ml 1625-1950ml (1ml/kcal) Nutritional Problem 1. Problem Problem inadequate food intake Etiology poor appetite Signs/Symptoms: PO intake <50% Malnutrition Alert Muscle Mass (Non-Severe) Mild Depletion Protein-Calorie Malnutrition N/A Is there a minimum of two criteria No selected? Query Text:Check all the applicable criteria. A minimum of two criteria are recommended for diagnosis of either severe or non-severe malnutrition. Intervention/Recommendation Comments 1. Continue with cardiac diet as ordered. Encouraged oral intake. If PO intake continue new, will consider adding nutrition supplements to increase nutrition intake. 2. Monitor PO intake, wt, labs and skin integrity 3. F/U as high risk in 2-3 days, 10/08-10/09 Expected Outcomes/Goals Expected Outcomes/Goals 1. PO intake to meet at least 75% of nutritional needs. 2. Wt stability, skin to remain intact, labs to approach WNL.
[2017-10-11] MEDS: Levothyroxine 0.075 Mg Tab PO SCH (06:36)
[2017-10-11] MEDS: NIFEdipine 30 mg ER Tab PO SCH (09:27)
[2017-10-11] MEDS: Aspirin 81mg Chewable Tab PO SCH (09:28)
[2017-10-11] MEDS: Enoxaparin 40 mg/0.4 mL 0.4mL Syr SUBQ SCH (09:30)
--- NOTE | 2017-10-11 17:49 | General Progress Note ---
Subjective - Review of Systems Service Date: 10/11/17 Subjective: resting comfortably no distress confused Objective - Results Result Diagrams: 10/04/17 06:00 10/04/17 06:00 Recent Labs: Laboratory Last Values WBC 8.3 Th/cmm (4.8-10.8) 10/04/17 06:00 RBC 5.00 Mil/cmm (3.80-5.20) 10/04/17 06:00 Hgb 14.2 gm/dL (12-16) 10/04/17 06:00 Hct 42.6 % (41.0-60) 10/04/17 06:00 MCV 85.1 fl (81-100) 10/04/17 06:00 MCH 28.4 pg (27.0-31.0) 10/04/17 06:00 MCHC Differential 33.4 pg (28.0-36.0) 10/04/17 06:00 RDW 14.9 % (11.5-20.0) 10/04/17 06:00 Plt Count 237 Th/cmm (150-400) 10/04/17 06:00 MPV 8.4 fl 10/04/17 06:00 Neutrophils % 54.9 % (40.0-80.0) 10/04/17 06:00 Lymphocytes % 30.8 % (20.0-50.0) 10/04/17 06:00 Monocytes % 10.3 % (2.0-10.0) H 10/04/17 06:00 Eosinophils % 3.0 % (0.0-5.0) 10/04/17 06:00 Basophils % 1.0 % (0.0-2.0) 10/04/17 06:00 PT 10.2 SECONDS (9.5-11.5) 10/02/17 14:30 INR 0.98 (0.5-1.4) 10/02/17 14:30 PTT (Actin FS) 23.2 SECONDS (26.0-38.0) L 10/02/17 14:30 D-Dimer 1780 ng/mL (100-400) H 10/02/17 14:30 Sodium 135 mEq/L (136-145) L 10/04/17 06:00 Potassium 3.7 mEq/L (3.5-5.1) 10/04/17 06:00 Chloride 97 mEq/L (98-107) L 10/04/17 06:00 Carbon Dioxide 29.1 mEq/L (21.0-31.0) 10/04/17 06:00 Anion Gap 12.6 (7.0-16.0) 10/04/17 06:00 BUN 25 mg/dL (7-25) 10/04/17 06:00 Creatinine 1.4 mg/dL (0.6-1.2) H 10/04/17 06:00 Est GFR ( Amer) TNP 10/04/17 06:00 Est GFR (Non-Af Amer) TNP 10/04/17 06:00 BUN/Creatinine Ratio 17.9 10/04/17 06:00 Glucose 122 mg/dL (70-105) H 10/04/17 06:00 Whole Bld Lactic Acid 1.42 mmol/L (0.60-1.99) 10/02/17 14:30 Calcium 10.0 mg/dL (8.6-10.3) 10/04/17 06:00 Total Bilirubin 0.4 mg/dL (0.3-1.0) 10/02/17 14:30 AST 37 U/L (13-39) 10/02/17 14:30 ALT 12 U/L (7-52) 10/02/17 14:30 Alkaline Phosphatase 71 U/L (34-104) 10/02/17 14:30 Creatine Kinase 465 U/L (30-223) H 10/02/17 14:30 CK-MB (CK-2) 7.0 ng/mL (0.6-6.3) H 10/02/17 14:30 Troponin I 0.05 ng/mL (0.01-0.05) 10/04/17 06:00 B-Natriuretic Peptide 255.0 pg/mL (5.0-100.0) H 10/02/17 14:30 Total Protein 6.9 gm/dL (6.0-8.3) 10/02/17 14:30 Albumin 3.9 gm/dL (3.7-5.3) 10/02/17 14:30 Globulin 3.0 gm/dL 10/02/17 14:30 Albumin/Globulin Ratio 1.3 (1.0-1.8) 10/02/17 14:30 Triglycerides 155 mg/dL (<150) H 10/04/17 06:00 Cholesterol 204 mg/dL (<200) H 10/04/17 06:00 LDL Cholesterol Direct 133 mg/dL (75-193) 10/04/17 06:00 HDL Cholesterol 45 mg/dL (23-92) 10/04/17 06:00 Urine Source MIDSTREAM 10/02/17 16:20 Urine Color YELLOW 10/02/17 16:20 Urine Clarity CLEAR (CLEAR) 10/02/17 16:20 Urine pH 6.0 (4.6 - 8.0) 10/02/17 16:20 Ur Specific [place] <= 1.005 (1.005-1.030) 10/02/17 16:20 Urine Protein NEGATIVE mg/dL (NEGATIVE) 10/02/17 16:20 Urine Glucose (UA) NEGATIVE mg/dL (NEGATIVE) 10/02/17 16:20 Urine Ketones NEGATIVE mg/dL (NEGATIVE) 10/02/17 16:20 Urine Blood TRACE (NEGATIVE) 10/02/17 16:20 Urine Nitrate NEGATIVE (NEGATIVE) 10/02/17 16:20 Urine Bilirubin NEGATIVE (NEGATIVE) 10/02/17 16:20 Urine Urobilinogen 0.2 E.U./dL (0.2 - 1.0) 10/02/17 16:20 Ur Leukocyte Esterase TRACE (NEGATIVE) H 10/02/17 16:20 Urine RBC 0-2 /hpf (0-5) 10/02/17 16:20 Urine WBC 0-2 /hpf (0-5) 10/02/17 16:20 Ur Epithelial Cells RARE /lpf (FEW) 10/02/17 16:20 Urine Bacteria NONE SEEN /hpf (NONE SEEN) 10/02/17 16:20 - Physical Exam Vitals and I&O: Vital Signs Temp 97 F 10/11/17 16:00 Pulse 61 10/11/17 16:00 Resp 18 10/11/17 16:00 BP 95/43 10/11/17 16:00 Pulse Ox 95 10/11/17 16:00 Intake & Output 10/10/17 10/11/17 10/11/17 18:59 06:59 18:59 Intake Total 800 360 Balance 800 360 Weight (lbs) 61.235 kg 61.235 kg Intake: Oral 800 360 Other: # Voids 4 3 # Bowel Movements 1 Weight Source Bedscale Bedscale Active Medications: Current Medications Aspirin (Aspirin Chewable) 81 mg PO DAILY [facility] Stop: 12/02/17 08:59 Last Admin: 10/11/17 09:28 Dose: 81 mg Cholecalciferol (Vitamin D3) 1,000 iu PO DAILY [facility] Stop: 12/02/17 08:59 Last Admin: 10/11/17 09:28 Dose: 1,000 iu Enoxaparin Sodium (Lovenox) 40 mg SUBQ DAILY [facility] Stop: 12/01/17 22:41 Last Admin: 10/11/17 09:30 Dose: 40 mg Furosemide (Lasix) 20 mg IVP Q12H [facility] Stop: 12/01/17 22:41 Last Admin: 10/11/17 11:21 Dose: Not Given Hydralazine HCl (Apresoline) 50 mg PO TID [facility] Stop: 12/02/17 13:59 Last Admin: 10/11/17 13:12 Dose: 50 mg Levothyroxine Sodium (Synthroid) 0.075 mg PO QDAC [facility] Stop: 12/02/17 07:29 Last Admin: 10/11/17 06:36 Dose: 0.075 mg Losartan Potassium (Cozaar) 100 mg PO DAILY [facility] Stop: 12/03/17 08:59 Last Admin: 10/11/17 09:30 Dose: 100 mg Metoprolol Tartrate (Lopressor) 25 mg PO BID [facility] Stop: 12/01/17 22:29 Last Admin: 10/11/17 16:08 Dose: Not Given Nifedipine (Procardia Xl) 90 mg PO DAILY [facility] Stop: 12/02/17 09:59 Last Admin: 10/11/17 09:27 Dose: 90 mg Paroxetine HCl (Paxil) 40 mg PO DAILY [facility] PRN Reason: Protocol Stop: 12/02/17 08:59 Last Admin: 10/11/17 09:27 Dose: 40 mg Quetiapine Fumarate (Seroquel) 25 mg PO HS [facility] PRN Reason: Protocol Stop: 12/04/17 07:08 Last Admin: 10/10/17 20:42 Dose: 25 mg General: No acute distress HEENT: Atraumatic Neck: Supple, JVD Cardiovascular: Regular rate, Normal S1, Normal S2 Lungs: Clear to auscultation Abdomen: Bowel sounds, Soft Assessment/Plan - Problem List Patient Problems: All Active Problems DYSPNEA WITH EXTREMITY WEAKNESS (Acute) - Assessment Assessment: 1.CHF. 2.UNCONTROLLED HTN 3.DEMENTIA. - Plan Plan: cont current treatment Nutritional Asmnt/Malnutr-PDOC - Dietary Evaluation Malnutrition Findings (Please click <Entered> for more info): Nutritional Asmnt/Malnutrition Start: 10/06/17 13: 52 Text: Status: Complete Freq: Q12H Document 10/06/17 13:52 [facility] (Rec: 10/06/17 14:00 [id number] Nutritional Asmnt/Malnutrition Patient General Information Nutritional Screening Moderate Risk Diagnosis CHF exacerbation Pertinent Medical Hx/Surgical Hx HTN, hypothyroidism, dementia, depression Subjective Information Pt seen sitting up in bed starting with lunch. Per [employer] PA[employer], pt had 50% of breakfast thir morning, PO intake improving. Per EMR, PO intake 0-10% yesterday 10/05. Pt stated no appetite, she has no buttom teeth, but denied any problem with chewing. Current Diet Order/ Nutrition Support cardiac Pertinent Medications vit D3, lasix, synthroid, seroquel Pertinent Labs 10/04 na 135, cl 97, cr 1.4, glucose 122 Nutritional Hx/Data Height 1.6 m Height (Calculated Centimeters) 160.0 Current Weight (lbs) 65.317 kg Weight (Calculated Kilograms) 65.3 Weight (Calculated Grams) 48653.3 [place] Body Weight 115 Body Mass Index (BMI) 25.4 Weight Status Overweight GI Symptoms GI Symptoms None Last BM 10/06 Difficult in: None Skin Integrity/Comment: skin tear to left arm Current %PO Poor (25-49%) Estimated Nutritional Goals BEE in Kcals: Using Current wt Calories/Kcals/Kg 25-30 Kcals Calculated 2091-2068 Protein: Using Current wt Protein g/k Protein Calculated 65 Fluid: ml 1625-1950ml (1ml/kcal) Nutritional Problem 1. Problem Problem inadequate food intake Etiology poor appetite Signs/Symptoms: PO intake <50% Malnutrition Alert Muscle Mass (Non-Severe) Mild Depletion Protein-Calorie Malnutrition N/A Is there a minimum of two criteria No selected? Query Text:Check all the applicable criteria. A minimum of two criteria are recommended for diagnosis of either severe or non-severe malnutrition. Intervention/Recommendation Comments 1. Continue with cardiac diet as ordered. Encouraged oral intake. If PO intake continue new, will consider adding nutrition supplements to increase nutrition intake. 2. Monitor PO intake, wt, labs and skin integrity 3. F/U as high risk in 2-3 days, 10/08-10/09 Expected Outcomes/Goals Expected Outcomes/Goals 1. PO intake to meet at least 75% of nutritional needs. 2. Wt stability, skin to remain intact, labs to approach WNL.
[2017-10-12 06:30] LABS: ANION GAP 12.8 (7.0-16.0); BUN - UREA NITROGEN 42 mg/dL (7-25); CALCIUM SERUM 9.3 mg/dL (8.6-10.3); CARBON DIOXIDE 27.9 mEq/L (21.0-31.0); CHLORIDE 99 mEq/L (98-107); CREATININE - SERUM 1.7 mg/dL (0.6-1.2); GLUCOSE 100 mg/dL (70-105); SODIUM SERUM 137 mEq/L (136-145)
[2017-10-12 06:31] LABS: % BASOPHILS 0.8 % (0.0-2.0); % LYMPHOCYTES 30.2 % (20.0-50.0); % MONOCYTES 12.5 % (2.0-10.0); % NEUTROPHILS 53.5 % (40.0-80.0); BASOPHILE ABSOLUTE 0.1 Th/cumm (0-0.2); EOSINOPHILE ABSOLUTE 0.2 Th/cmm (0.1-0.4); HEMATOCRIT 37.1 % (41.0-60); HEMOGLOBIN 12.1 gm/dL (12-16); LYMPHOCYTE ABSOLUTE 2.4 Th/cmm (1.5-3.0); MEAN CELL VOLUME 86.7 fl (81-100); MEAN CORPUSCULAR HEMOGLOBIN 28.4 pg (27.0-31.0); MEAN CORPUSCULAR HGB CONC 32.8 pg (28.0-36.0); MEAN PLATELET VOLUME 8.8 fl; NEUTROPHILE ABSOLUTE 4.2 Th/cmm (1.8-8.0); PLATELET COUNT 233 Th/cmm (150-400); RED BLOOD COUNT 4.27 Mil/cmm (3.80-5.20); RED CELL DISTRIBUTION WIDTH 14.1 % (11.5-20.0); WHITE BLOOD COUNT 7.9 Th/cmm (4.8-10.8)
[2017-10-12] MEDS: Levothyroxine 0.075 Mg Tab PO SCH (06:39)
[2017-10-12 06:47] LABS: POTASSIUM SERUM 2.7 mEq/L (3.5-5.1)
[2017-10-12] MEDS ORDERED: Potassium Chloride 40 MEQ, Lidocaine 1% 20mL Vial 25 MG in Sodium Chloride 0.9% 250 ML IV ONE (08:01)
[2017-10-12] MEDS: KCL 20mEq/100mL Premix Bag IV SCH ×2 (08:35→11:21)
[2017-10-12] MEDS: Enoxaparin 40 mg/0.4 mL 0.4mL Syr SUBQ SCH (08:36)
[2017-10-12] MEDS: Aspirin 81mg Chewable Tab PO SCH (08:39)
[2017-10-12] MEDS ORDERED: Potassium Chloride 20 mEq ER Tab PO ONE (09:00)
[2017-10-12] MEDS: NIFEdipine 30 mg ER Tab PO SCH (11:22)
--- NOTE | 2017-10-12 22:23 | Internal Medicine Prog Note ---
Internal Medicine Subjective - Subjective Service Date: 10/12/17 Patient seen and examined:: with staff (she feels better,no sob.) Patient is:: awake, verbal, in bed, confused Patient Complaints of:: other (NO SOB) Per staff patient has:: no adverse event Internal Medicine Objective - Results Result Diagrams: 10/12/17 05:53 10/12/17 16:59 Recent Labs: Laboratory Last Values WBC 7.9 Th/cmm (4.8-10.8) 10/12/17 05:53 RBC 4.27 Mil/cmm (3.80-5.20) 10/12/17 05:53 Hgb 12.1 gm/dL (12-16) 10/12/17 05:53 Hct 37.1 % (41.0-60) L 10/12/17 05:53 MCV 86.7 fl (81-100) 10/12/17 05:53 MCH 28.4 pg (27.0-31.0) 10/12/17 05:53 MCHC Differential 32.8 pg (28.0-36.0) 10/12/17 05:53 RDW 14.1 % (11.5-20.0) 10/12/17 05:53 Plt Count 233 Th/cmm (150-400) 10/12/17 05:53 MPV 8.8 fl 10/12/17 05:53 Neutrophils % 53.5 % (40.0-80.0) 10/12/17 05:53 Lymphocytes % 30.2 % (20.0-50.0) 10/12/17 05:53 Monocytes % 12.5 % (2.0-10.0) H 10/12/17 05:53 Eosinophils % 3.0 % (0.0-5.0) 10/12/17 05:53 Basophils % 0.8 % (0.0-2.0) 10/12/17 05:53 PT 10.2 SECONDS (9.5-11.5) 10/02/17 14:30 INR 0.98 (0.5-1.4) 10/02/17 14:30 PTT (Actin FS) 23.2 SECONDS (26.0-38.0) L 10/02/17 14:30 D-Dimer 1780 ng/mL (100-400) H 10/02/17 14:30 Sodium 137 mEq/L (136-145) 10/12/17 06:00 Potassium 4.1 mEq/L (3.5-5.1) 10/12/17 16:59 Chloride 99 mEq/L (98-107) 10/12/17 06:00 Carbon Dioxide 27.9 mEq/L (21.0-31.0) 10/12/17 06:00 Anion Gap 12.8 (7.0-16.0) 10/12/17 06:00 BUN 42 mg/dL (7-25) H 10/12/17 06:00 Creatinine 1.7 mg/dL (0.6-1.2) H 10/12/17 06:00 Est GFR ( Amer) TNP 10/12/17 06:00 Est GFR (Non-Af Amer) TNP 10/12/17 06:00 BUN/Creatinine Ratio 24.7 10/12/17 06:00 Glucose 100 mg/dL (70-105) 10/12/17 06:00 Whole Bld Lactic Acid 1.42 mmol/L (0.60-1.99) 10/02/17 14:30 Calcium 9.3 mg/dL (8.6-10.3) 10/12/17 06:00 Total Bilirubin 0.4 mg/dL (0.3-1.0) 10/02/17 14:30 AST 37 U/L (13-39) 10/02/17 14:30 ALT 12 U/L (7-52) 10/02/17 14:30 Alkaline Phosphatase 71 U/L (34-104) 10/02/17 14:30 Creatine Kinase 465 U/L (30-223) H 10/02/17 14:30 CK-MB (CK-2) 7.0 ng/mL (0.6-6.3) H 10/02/17 14:30 Troponin I 0.05 ng/mL (0.01-0.05) 10/04/17 06:00 B-Natriuretic Peptide 255.0 pg/mL (5.0-100.0) H 10/02/17 14:30 Total Protein 6.9 gm/dL (6.0-8.3) 10/02/17 14:30 Albumin 3.9 gm/dL (3.7-5.3) 10/02/17 14:30 Globulin 3.0 gm/dL 10/02/17 14:30 Albumin/Globulin Ratio 1.3 (1.0-1.8) 10/02/17 14:30 Triglycerides 155 mg/dL (<150) H 10/04/17 06:00 Cholesterol 204 mg/dL (<200) H 10/04/17 06:00 LDL Cholesterol Direct 133 mg/dL (75-193) 10/04/17 06:00 HDL Cholesterol 45 mg/dL (23-92) 10/04/17 06:00 Urine Source MIDSTREAM 10/02/17 16:20 Urine Color YELLOW 10/02/17 16:20 Urine Clarity CLEAR (CLEAR) 10/02/17 16:20 Urine pH 6.0 (4.6 - 8.0) 10/02/17 16:20 Ur Specific [place] <= 1.005 (1.005-1.030) 10/02/17 16:20 Urine Protein NEGATIVE mg/dL (NEGATIVE) 10/02/17 16:20 Urine Glucose (UA) NEGATIVE mg/dL (NEGATIVE) 10/02/17 16:20 Urine Ketones NEGATIVE mg/dL (NEGATIVE) 10/02/17 16:20 Urine Blood TRACE (NEGATIVE) 10/02/17 16:20 Urine Nitrate NEGATIVE (NEGATIVE) 10/02/17 16:20 Urine Bilirubin NEGATIVE (NEGATIVE) 10/02/17 16:20 Urine Urobilinogen 0.2 E.U./dL (0.2 - 1.0) 10/02/17 16:20 Ur Leukocyte Esterase TRACE (NEGATIVE) H 10/02/17 16:20 Urine RBC 0-2 /hpf (0-5) 10/02/17 16:20 Urine WBC 0-2 /hpf (0-5) 10/02/17 16:20 Ur Epithelial Cells RARE /lpf (FEW) 10/02/17 16:20 Urine Bacteria NONE SEEN /hpf (NONE SEEN) 10/02/17 16:20 - Physical Exam Vitals and I&O: Vital Signs Temp 99.1 F 10/12/17 20:00 Pulse 76 10/12/17 20:58 Resp 18 10/12/17 20:00 BP 100/56 10/12/17 20:58 Pulse Ox 95 10/12/17 20:00 Intake & Output 10/12/17 10/12/17 10/13/17 06:59 18:59 06:59 Intake Total 800 100 100 Balance 800 100 100 Weight (lbs) 61.235 kg Intake: Intake, IV Amount 100 100 KCL 20mEq/100mL Premix 20 100 meq In 100 ml @ 50 mls/ hr IV Q2H [facility] Rx#: [id number] Oral 800 Other: # Voids 4 # Bowel Movements 1 Weight Source Bedscale Active Medications: Current Medications Aspirin (Aspirin Chewable) 81 mg PO DAILY [facility] Stop: 12/02/17 08:59 Last Admin: 10/12/17 08:39 Dose: 81 mg Cholecalciferol (Vitamin D3) 1,000 iu PO DAILY [facility] Stop: 12/02/17 08:59 Last Admin: 10/12/17 08:39 Dose: 1,000 iu Enoxaparin Sodium (Lovenox) 40 mg SUBQ DAILY [facility] Stop: 12/01/17 22:41 Last Admin: 10/12/17 08:36 Dose: 40 mg Furosemide (Lasix) 20 mg IVP Q12H [facility] Stop: 12/01/17 22:41 Last Admin: 10/12/17 11:20 Dose: 20 mg Hydralazine HCl (Apresoline) 50 mg PO TID [facility] Stop: 12/02/17 13:59 Last Admin: 10/12/17 20:58 Dose: Not Given Levothyroxine Sodium (Synthroid) 0.075 mg PO QDAC [facility] Stop: 12/02/17 07:29 Last Admin: 10/12/17 06:39 Dose: 0.075 mg Losartan Potassium (Cozaar) 100 mg PO DAILY [facility] Stop: 12/03/17 08:59 Last Admin: 10/12/17 08:38 Dose: 100 mg Metoprolol Tartrate (Lopressor) 25 mg PO BID [facility] Stop: 12/01/17 22:29 Last Admin: 10/12/17 18:20 Dose: 25 mg Nifedipine (Procardia Xl) 90 mg PO DAILY [facility] Stop: 12/02/17 09:59 Last Admin: 10/12/17 11:22 Dose: 90 mg Paroxetine HCl (Paxil) 40 mg PO DAILY [facility] PRN Reason: Protocol Stop: 12/02/17 08:59 Last Admin: 10/12/17 08:38 Dose: 40 mg Quetiapine Fumarate (Seroquel) 25 mg PO HS [facility] PRN Reason: Protocol Stop: 12/04/17 07:08 Last Admin: 10/12/17 20:56 Dose: 25 mg General: demented HEENT: anicteric sclerae, throat clear Neck: Supple, No JVD, No thyromegaly, +2 carotid pulse wo bruit, No LAD Lungs: CTAB Cardiovascular: RRR, Normal S1, Normal S2, without murmur Abdomen: non-tender, non-distended Extremities: clear Neurological: no change Internal Medicine Assmt/Plan - Assessment Assessment: 1.CHF. 2.UNCONTROLLED HTN 3.DEMENTIA. - Plan Plan: CONTINUE ON CURRENT MEDICATION AND DIET. Nutritional Asmnt/Malnutr-PDOC - Dietary Evaluation Malnutrition Findings (Please click <Entered> for more info): Nutritional Asmnt/Malnutrition Start: 10/06/17 13: 52 Text: Status: Complete Freq: Q12H Document 10/06/17 13:52 [facility] (Rec: 10/06/17 14:00 [email or web address]) Nutritional Asmnt/Malnutrition Patient General Information Nutritional Screening Moderate Risk Diagnosis CHF exacerbation Pertinent Medical Hx/Surgical Hx HTN, hypothyroidism, dementia, depression Subjective Information Pt seen sitting up in bed starting with lunch. Per [employer] ADVERT[employer] STRATEGIST, pt had 50% of breakfast thir morning, PO intake improving. Per EMR, PO intake 0-10% yesterday 10/05. Pt stated no appetite, she has no buttom teeth, but denied any problem with chewing. Current Diet Order/ Nutrition Support cardiac Pertinent Medications vit D3, lasix, synthroid, seroquel Pertinent Labs 10/04 na 135, cl 97, cr 1.4, glucose 122 Nutritional Hx/Data Height 1.6 m Height (Calculated Centimeters) 160.0 Current Weight (lbs) 65.317 kg Weight (Calculated Kilograms) 65.3 Weight (Calculated Grams) 27653.3 [place] Body Weight 115 Body Mass Index (BMI) 25.4 Weight Status Overweight GI Symptoms GI Symptoms None Last BM 5/8 Difficult in: None Skin Integrity/Comment: skin tear to left arm Current %PO Poor (25-49%) Estimated Nutritional Goals BEE in Kcals: Using Current wt Calories/Kcals/Kg 25-30 Kcals Calculated 5931-1469 Protein: Using Current wt Protein g/k Protein Calculated 65 Fluid: ml 1625-1950ml (1ml/kcal) Nutritional Problem 1. Problem Problem inadequate food intake Etiology poor appetite Signs/Symptoms: PO intake <50% Malnutrition Alert Muscle Mass (Non-Severe) Mild Depletion Protein-Calorie Malnutrition N/A Is there a minimum of two criteria No selected? Query Text:Check all the applicable criteria. A minimum of two criteria are recommended for diagnosis of either severe or non-severe malnutrition. Intervention/Recommendation Comments 1. Continue with cardiac diet as ordered. Encouraged oral intake. If PO intake continue new, will consider adding nutrition supplements to increase nutrition intake. 2. Monitor PO intake, wt, labs and skin integrity 3. F/U as high risk in 2-3 days, 10/08-10/09 Expected Outcomes/Goals Expected Outcomes/Goals 1. PO intake to meet at least 75% of nutritional needs. 2. Wt stability, skin to remain intact, labs to approach WNL.
--- NOTE | 2017-10-12 23:45 | Progress Notes ---
DATE: 10/12/2017 Case was discussed with staff of the patient, reviewed records. The patient is more alert, though she is unable to tell me the date, where she is, why she is here. However, she is alert. She is redirectable. She is compliant with the medication with no side effects, no sedation, no extrapyramidal symptoms, and her medications are the same. There has been no change since last 2 days. Since I have last seen her, her depression is improving. Thank you very much for allowing me to participate in the care of this most interesting lady. JOB# [id number]
[2017-10-13] MEDS: Levothyroxine 0.075 Mg Tab PO SCH (06:33)
[2017-10-13] MEDS: NIFEdipine 30 mg ER Tab PO SCH (09:20)
[2017-10-13] MEDS: Enoxaparin 40 mg/0.4 mL 0.4mL Syr SUBQ SCH (09:21)
[2017-10-13] MEDS: Aspirin 81mg Chewable Tab PO SCH (09:21)
--- NOTE | 2017-10-13 10:57 | Internal Medicine Prog Note ---
Internal Medicine Subjective - Subjective Service Date: 10/13/17 Patient seen and examined:: with staff Patient is:: awake, verbal, in bed, confused Patient Complaints of:: other (NO SOB) Per staff patient has:: no adverse event Internal Medicine Objective - Results Result Diagrams: 10/12/17 05:53 10/12/17 16:59 Recent Labs: Laboratory Last Values WBC 7.9 Th/cmm (4.8-10.8) 10/12/17 05:53 RBC 4.27 Mil/cmm (3.80-5.20) 10/12/17 05:53 Hgb 12.1 gm/dL (12-16) 10/12/17 05:53 Hct 37.1 % (41.0-60) L 10/12/17 05:53 MCV 86.7 fl (81-100) 10/12/17 05:53 MCH 28.4 pg (27.0-31.0) 10/12/17 05:53 MCHC Differential 32.8 pg (28.0-36.0) 10/12/17 05:53 RDW 14.1 % (11.5-20.0) 10/12/17 05:53 Plt Count 233 Th/cmm (150-400) 10/12/17 05:53 MPV 8.8 fl 10/12/17 05:53 Neutrophils % 53.5 % (40.0-80.0) 10/12/17 05:53 Lymphocytes % 30.2 % (20.0-50.0) 10/12/17 05:53 Monocytes % 12.5 % (2.0-10.0) H 10/12/17 05:53 Eosinophils % 3.0 % (0.0-5.0) 10/12/17 05:53 Basophils % 0.8 % (0.0-2.0) 10/12/17 05:53 PT 10.2 SECONDS (9.5-11.5) 10/02/17 14:30 INR 0.98 (0.5-1.4) 10/02/17 14:30 PTT (Actin FS) 23.2 SECONDS (26.0-38.0) L 10/02/17 14:30 D-Dimer 1780 ng/mL (100-400) H 10/02/17 14:30 Sodium 137 mEq/L (136-145) 10/12/17 06:00 Potassium 4.1 mEq/L (3.5-5.1) 10/12/17 16:59 Chloride 99 mEq/L (98-107) 10/12/17 06:00 Carbon Dioxide 27.9 mEq/L (21.0-31.0) 10/12/17 06:00 Anion Gap 12.8 (7.0-16.0) 10/12/17 06:00 BUN 42 mg/dL (7-25) H 10/12/17 06:00 Creatinine 1.7 mg/dL (0.6-1.2) H 10/12/17 06:00 Est GFR ( Amer) TNP 10/12/17 06:00 Est GFR (Non-Af Amer) TNP 10/12/17 06:00 BUN/Creatinine Ratio 24.7 10/12/17 06:00 Glucose 100 mg/dL (70-105) 10/12/17 06:00 Whole Bld Lactic Acid 1.42 mmol/L (0.60-1.99) 10/02/17 14:30 Calcium 9.3 mg/dL (8.6-10.3) 10/12/17 06:00 Total Bilirubin 0.4 mg/dL (0.3-1.0) 10/02/17 14:30 AST 37 U/L (13-39) 10/02/17 14:30 ALT 12 U/L (7-52) 10/02/17 14:30 Alkaline Phosphatase 71 U/L (34-104) 10/02/17 14:30 Creatine Kinase 465 U/L (30-223) H 10/02/17 14:30 CK-MB (CK-2) 7.0 ng/mL (0.6-6.3) H 10/02/17 14:30 Troponin I 0.05 ng/mL (0.01-0.05) 10/04/17 06:00 B-Natriuretic Peptide 255.0 pg/mL (5.0-100.0) H 10/02/17 14:30 Total Protein 6.9 gm/dL (6.0-8.3) 10/02/17 14:30 Albumin 3.9 gm/dL (3.7-5.3) 10/02/17 14:30 Globulin 3.0 gm/dL 10/02/17 14:30 Albumin/Globulin Ratio 1.3 (1.0-1.8) 10/02/17 14:30 Triglycerides 155 mg/dL (<150) H 10/04/17 06:00 Cholesterol 204 mg/dL (<200) H 10/04/17 06:00 LDL Cholesterol Direct 133 mg/dL (75-193) 10/04/17 06:00 HDL Cholesterol 45 mg/dL (23-92) 10/04/17 06:00 Urine Source MIDSTREAM 10/02/17 16:20 Urine Color YELLOW 10/02/17 16:20 Urine Clarity CLEAR (CLEAR) 10/02/17 16:20 Urine pH 6.0 (4.6 - 8.0) 10/02/17 16:20 Ur Specific [place] <= 1.005 (1.005-1.030) 10/02/17 16:20 Urine Protein NEGATIVE mg/dL (NEGATIVE) 10/02/17 16:20 Urine Glucose (UA) NEGATIVE mg/dL (NEGATIVE) 10/02/17 16:20 Urine Ketones NEGATIVE mg/dL (NEGATIVE) 10/02/17 16:20 Urine Blood TRACE (NEGATIVE) 10/02/17 16:20 Urine Nitrate NEGATIVE (NEGATIVE) 10/02/17 16:20 Urine Bilirubin NEGATIVE (NEGATIVE) 10/02/17 16:20 Urine Urobilinogen 0.2 E.U./dL (0.2 - 1.0) 10/02/17 16:20 Ur Leukocyte Esterase TRACE (NEGATIVE) H 10/02/17 16:20 Urine RBC 0-2 /hpf (0-5) 10/02/17 16:20 Urine WBC 0-2 /hpf (0-5) 10/02/17 16:20 Ur Epithelial Cells RARE /lpf (FEW) 10/02/17 16:20 Urine Bacteria NONE SEEN /hpf (NONE SEEN) 10/02/17 16:20 - Physical Exam Vitals and I&O: Vital Signs Temp 98.2 F 10/13/17 04:00 Pulse 62 10/13/17 09:31 Resp 18 10/13/17 04:00 BP 140/62 10/13/17 09:31 Pulse Ox 95 10/13/17 04:00 Intake & Output 10/12/17 10/13/17 10/13/17 18:59 06:59 18:59 Intake Total 100 340 Balance 100 340 Weight (lbs) 61.235 kg Intake: Intake, IV Amount 100 100 KCL 20mEq/100mL Premix 20 100 meq In 100 ml @ 50 mls/ hr IV Q2H [facility] Rx#: [id number] Oral 240 Other: # Voids 3 Weight Source Bedscale Active Medications: Current Medications Aspirin (Aspirin Chewable) 81 mg PO DAILY SUJATA Stop: 12/02/17 08:59 Last Admin: 10/13/17 09:21 Dose: 81 mg Cholecalciferol (Vitamin D3) 1,000 iu PO DAILY SUJATA Stop: 12/02/17 08:59 Last Admin: 10/13/17 09:21 Dose: 1,000 iu Enoxaparin Sodium (Lovenox) 40 mg SUBQ DAILY SUJATA Stop: 12/01/17 22:41 Last Admin: 10/13/17 09:21 Dose: 40 mg Furosemide (Lasix) 20 mg IVP Q12H SUJATA Stop: 12/01/17 22:41 Last Admin: 10/12/17 22:42 Dose: Not Given Hydralazine HCl (Apresoline) 50 mg PO TID SUJATA Stop: 12/02/17 13:59 Last Admin: 10/12/17 20:58 Dose: Not Given Levothyroxine Sodium (Synthroid) 0.075 mg PO QDAC SUJATA Stop: 12/02/17 07:29 Last Admin: 10/13/17 06:33 Dose: 0.075 mg Losartan Potassium (Cozaar) 100 mg PO DAILY SUJATA Stop: 12/03/17 08:59 Last Admin: 10/13/17 09:21 Dose: 100 mg Metoprolol Tartrate (Lopressor) 25 mg PO BID SUJATA Stop: 12/01/17 22:29 Last Admin: 10/13/17 09:31 Dose: 25 mg Nifedipine (Procardia Xl) 90 mg PO DAILY SUJATA Stop: 12/02/17 09:59 Last Admin: 10/13/17 09:20 Dose: 90 mg Paroxetine HCl (Paxil) 40 mg PO DAILY [facility] PRN Reason: Protocol Stop: 12/02/17 08:59 Last Admin: 10/13/17 09:21 Dose: 40 mg Quetiapine Fumarate (Seroquel) 25 mg PO HS [facility] PRN Reason: Protocol Stop: 12/04/17 07:08 Last Admin: 10/12/17 20:56 Dose: 25 mg General: demented HEENT: anicteric sclerae, throat clear Neck: Supple, No JVD, No thyromegaly, +2 carotid pulse wo bruit, No LAD Lungs: CTAB Cardiovascular: RRR, Normal S1, Normal S2, without murmur Abdomen: non-tender, non-distended Extremities: clear Neurological: no change Internal Medicine Assmt/Plan - Assessment Assessment: 1.CHF. 2.HTN 3.DEMENTIA. - Plan Plan: CONTINUE ON CURRENT MEDICATION AND DIET. Nutritional Asmnt/Malnutr-PDOC - Dietary Evaluation Malnutrition Findings (Please click <Entered> for more info): Nutritional Asmnt/Malnutrition Start: 10/06/17 13: 52 Text: Status: Complete Freq: Q12H Document 10/06/17 13:52 [facility] (Rec: 10/06/17 14:00 [facility] [email or web address]) Nutritional Asmnt/Malnutrition Patient General Information Nutritional Screening Moderate Risk Diagnosis CHF exacerbation Pertinent Medical Hx/Surgical Hx HTN, hypothyroidism, dementia, depression Subjective Information Pt seen sitting up in bed starting with lunch. 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 Per EMR, PO intake 0-10% yesterday 10/05. Pt stated no appetite, she has no buttom teeth, but denied any problem with chewing. Current Diet Order/ Nutrition Support cardiac Pertinent Medications vit D3, lasix, synthroid, seroquel Pertinent Labs 10/04 na 135, cl 97, cr 1.4, glucose 122 Nutritional Hx/Data Height 1.6 m Height (Calculated Centimeters) 160.0 Current Weight (lbs) 65.317 kg Weight (Calculated Kilograms) 65.3 Weight (Calculated Grams) 18360.3 [place] Body Weight 115 Body Mass Index (BMI) 25.4 Weight Status Overweight GI Symptoms GI Symptoms None Last BM 10/06 Difficult in: None Skin Integrity/Comment: skin tear to left arm Current %PO Poor (25-49%) Estimated Nutritional Goals BEE in Kcals: Using Current wt Calories/Kcals/Kg 25-30 Kcals Calculated 2634-7205 Protein: Using Current wt Protein g/k Protein Calculated 65 Fluid: ml 1625-1950ml (1ml/kcal) Nutritional Problem 1. Problem Problem inadequate food intake Etiology poor appetite Signs/Symptoms: PO intake <50% Malnutrition Alert Muscle Mass (Non-Severe) Mild Depletion Protein-Calorie Malnutrition N/A Is there a minimum of two criteria No selected? Query Text:Check all the applicable criteria. A minimum of two criteria are recommended for diagnosis of either severe or non-severe malnutrition. Intervention/Recommendation Comments 1. Continue with cardiac diet as ordered. Encouraged oral intake. If PO intake continue new, will consider adding nutrition supplements to increase nutrition intake. 2. Monitor PO intake, wt, labs and skin integrity 3. F/U as high risk in 2-3 days, 10/08-10/09 Expected Outcomes/Goals Expected Outcomes/Goals 1. PO intake to meet at least 75% of nutritional needs. 2. Wt stability, skin to remain intact, labs to approach WNL.
--- NOTE | 2017-10-13 22:13 | Progress Notes ---
DATE: 10/13/2017 Case discussed with staff of the patient, reviewed records. The patient is able to talk; however, she is unable to tell me the date, where she is, why she is here. Sleeping better, eating better. No side effects, no sedation. Nausea noted from the symptoms. She was denying any intent to harm herself or anybody. However, she is a poor historian. Thank you very much for allowing me to participate in the care of this most interesting lady. JOB# [id number]
[2017-10-14] MEDS: Levothyroxine 0.075 Mg Tab PO SCH (07:05)
[2017-10-14] MEDS: Enoxaparin 40 mg/0.4 mL 0.4mL Syr SUBQ SCH (08:46)
[2017-10-14] MEDS: Aspirin 81mg Chewable Tab PO SCH (08:47)
[2017-10-14] MEDS: NIFEdipine 30 mg ER Tab PO SCH (08:48)
--- NOTE | 2017-10-14 23:36 | Internal Medicine Prog Note ---
Internal Medicine Subjective - Subjective Service Date: 10/14/17 Patient seen and examined:: without staff (she feels well) Patient is:: awake, verbal, in bed, confused Patient Complaints of:: other (NO SOB) Per staff patient has:: no adverse event Internal Medicine Objective - Results Result Diagrams: 10/12/17 05:53 10/12/17 16:59 Recent Labs: Laboratory Last Values WBC 7.9 Th/cmm (4.8-10.8) 10/12/17 05:53 RBC 4.27 Mil/cmm (3.80-5.20) 10/12/17 05:53 Hgb 12.1 gm/dL (12-16) 10/12/17 05:53 Hct 37.1 % (41.0-60) L 10/12/17 05:53 MCV 86.7 fl (81-100) 10/12/17 05:53 MCH 28.4 pg (27.0-31.0) 10/12/17 05:53 MCHC Differential 32.8 pg (28.0-36.0) 10/12/17 05:53 RDW 14.1 % (11.5-20.0) 10/12/17 05:53 Plt Count 233 Th/cmm (150-400) 10/12/17 05:53 MPV 8.8 fl 10/12/17 05:53 Neutrophils % 53.5 % (40.0-80.0) 10/12/17 05:53 Lymphocytes % 30.2 % (20.0-50.0) 10/12/17 05:53 Monocytes % 12.5 % (2.0-10.0) H 10/12/17 05:53 Eosinophils % 3.0 % (0.0-5.0) 10/12/17 05:53 Basophils % 0.8 % (0.0-2.0) 10/12/17 05:53 PT 10.2 SECONDS (9.5-11.5) 10/02/17 14:30 INR 0.98 (0.5-1.4) 10/02/17 14:30 PTT (Actin FS) 23.2 SECONDS (26.0-38.0) L 10/02/17 14:30 D-Dimer 1780 ng/mL (100-400) H 10/02/17 14:30 Sodium 137 mEq/L (136-145) 10/12/17 06:00 Potassium 4.1 mEq/L (3.5-5.1) 10/12/17 16:59 Chloride 99 mEq/L (98-107) 10/12/17 06:00 Carbon Dioxide 27.9 mEq/L (21.0-31.0) 10/12/17 06:00 Anion Gap 12.8 (7.0-16.0) 10/12/17 06:00 BUN 42 mg/dL (7-25) H 10/12/17 06:00 Creatinine 1.7 mg/dL (0.6-1.2) H 10/12/17 06:00 Est GFR ( Amer) TNP 10/12/17 06:00 Est GFR (Non-Af Amer) TNP 10/12/17 06:00 BUN/Creatinine Ratio 24.7 10/12/17 06:00 Glucose 100 mg/dL (70-105) 10/12/17 06:00 Whole Bld Lactic Acid 1.42 mmol/L (0.60-1.99) 10/02/17 14:30 Calcium 9.3 mg/dL (8.6-10.3) 10/12/17 06:00 Total Bilirubin 0.4 mg/dL (0.3-1.0) 10/02/17 14:30 AST 37 U/L (13-39) 10/02/17 14:30 ALT 12 U/L (7-52) 10/02/17 14:30 Alkaline Phosphatase 71 U/L (34-104) 10/02/17 14:30 Creatine Kinase 465 U/L (30-223) H 10/02/17 14:30 CK-MB (CK-2) 7.0 ng/mL (0.6-6.3) H 10/02/17 14:30 Troponin I 0.05 ng/mL (0.01-0.05) 10/04/17 06:00 B-Natriuretic Peptide 255.0 pg/mL (5.0-100.0) H 10/02/17 14:30 Total Protein 6.9 gm/dL (6.0-8.3) 10/02/17 14:30 Albumin 3.9 gm/dL (3.7-5.3) 10/02/17 14:30 Globulin 3.0 gm/dL 10/02/17 14:30 Albumin/Globulin Ratio 1.3 (1.0-1.8) 10/02/17 14:30 Triglycerides 155 mg/dL (<150) H 10/04/17 06:00 Cholesterol 204 mg/dL (<200) H 10/04/17 06:00 LDL Cholesterol Direct 133 mg/dL (75-193) 10/04/17 06:00 HDL Cholesterol 45 mg/dL (23-92) 10/04/17 06:00 Urine Source MIDSTREAM 10/02/17 16:20 Urine Color YELLOW 10/02/17 16:20 Urine Clarity CLEAR (CLEAR) 10/02/17 16:20 Urine pH 6.0 (4.6 - 8.0) 10/02/17 16:20 Ur Specific [place] <= 1.005 (1.005-1.030) 10/02/17 16:20 Urine Protein NEGATIVE mg/dL (NEGATIVE) 10/02/17 16:20 Urine Glucose (UA) NEGATIVE mg/dL (NEGATIVE) 10/02/17 16:20 Urine Ketones NEGATIVE mg/dL (NEGATIVE) 10/02/17 16:20 Urine Blood TRACE (NEGATIVE) 10/02/17 16:20 Urine Nitrate NEGATIVE (NEGATIVE) 10/02/17 16:20 Urine Bilirubin NEGATIVE (NEGATIVE) 10/02/17 16:20 Urine Urobilinogen 0.2 E.U./dL (0.2 - 1.0) 10/02/17 16:20 Ur Leukocyte Esterase TRACE (NEGATIVE) H 10/02/17 16:20 Urine RBC 0-2 /hpf (0-5) 10/02/17 16:20 Urine WBC 0-2 /hpf (0-5) 10/02/17 16:20 Ur Epithelial Cells RARE /lpf (FEW) 10/02/17 16:20 Urine Bacteria NONE SEEN /hpf (NONE SEEN) 10/02/17 16:20 - Physical Exam Vitals and I&O: Vital Signs Temp 97.3 F 10/14/17 12:31 Pulse 68 10/14/17 20:44 Resp 18 10/14/17 20:00 BP 158/59 10/14/17 20:44 Pulse Ox 95 10/13/17 16:00 Intake & Output 10/14/17 10/14/17 10/15/17 06:59 18:59 06:59 Intake Total 240 600 Balance 240 600 Weight (lbs) 61.235 kg 61.235 kg Intake: Oral 240 600 Other: # Voids 2 3 # Bowel Movements 1 1 Weight Source Bedscale Bedscale Active Medications: Current Medications Aspirin (Aspirin Chewable) 81 mg PO DAILY SUJATA Stop: 12/02/17 08:59 Last Admin: 10/14/17 08:47 Dose: 81 mg Cholecalciferol (Vitamin D3) 1,000 iu PO DAILY SUJATA Stop: 12/02/17 08:59 Last Admin: 10/14/17 08:47 Dose: 1,000 iu Enoxaparin Sodium (Lovenox) 40 mg SUBQ DAILY SUJATA Stop: 12/01/17 22:41 Last Admin: 10/14/17 08:46 Dose: 40 mg Furosemide (Lasix) 20 mg IVP Q12H [facility]JATA Stop: 12/01/17 22:41 Last Admin: 10/14/17 22:13 Dose: 20 mg Hydralazine HCl (Apresoline) 50 mg PO TID SUJATA Stop: 12/02/17 13:59 Last Admin: 10/14/17 20:44 Dose: 50 mg Levothyroxine Sodium (Synthroid) 0.075 mg PO QDAC SUJATA Stop: 12/02/17 07:29 Last Admin: 10/14/17 07:05 Dose: 0.075 mg Losartan Potassium (Cozaar) 100 mg PO DAILY SUJATA Stop: 12/03/17 08:59 Last Admin: 10/14/17 08:47 Dose: 100 mg Metoprolol Tartrate (Lopressor) 25 mg PO BID SUJATA Stop: 12/01/17 22:29 Last Admin: 10/14/17 16:31 Dose: Not Given Nifedipine (Procardia Xl) 90 mg PO DAILY [facility] Stop: 12/02/17 09:59 Last Admin: 10/14/17 08:48 Dose: 90 mg Paroxetine HCl (Paxil) 40 mg PO DAILY [facility] PRN Reason: Protocol Stop: 12/02/17 08:59 Last Admin: 10/14/17 08:47 Dose: 40 mg Quetiapine Fumarate (Seroquel) 25 mg PO HS [facility] PRN Reason: Protocol Stop: 12/04/17 07:08 Last Admin: 10/14/17 20:44 Dose: 25 mg General: demented HEENT: anicteric sclerae, throat clear Neck: Supple, No JVD, No thyromegaly, +2 carotid pulse wo bruit, No LAD Lungs: CTAB Cardiovascular: RRR, Normal S1, Normal S2, without murmur Abdomen: non-tender, non-distended Extremities: clear Neurological: no change Internal Medicine Assmt/Plan - Assessment Assessment: 1.CHF. 2.HTN 3.DEMENTIA. - Plan Plan: CONTINUE ON CURRENT MEDICATION AND DIET. Nutritional Asmnt/Malnutr-PDOC - Dietary Evaluation Malnutrition Findings (Please click <Entered> for more info): Nutritional Asmnt/Malnutrition Start: 10/06/17 13: 52 Text: Status: Complete Freq: Q12H Document 10/06/17 13:52 [facility] (Rec: 10/06/17 14:00 [facility] [email or web address]) Nutritional Asmnt/Malnutrition Patient General Information Nutritional Screening Moderate Risk Diagnosis CHF exacerbation Pertinent Medical Hx/Surgical Hx HTN, hypothyroidism, dementia, depression Subjective Information Pt seen sitting up in bed starting with lunch. 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 Per EMR, PO intake 0-10% yesterday 10/05. Pt stated no appetite, she has no buttom teeth, but denied any problem with chewing. Current Diet Order/ Nutrition Support cardiac Pertinent Medications vit D3, lasix, synthroid, seroquel Pertinent Labs 10/04 na 135, cl 97, cr 1.4, glucose 122 Nutritional Hx/Data Height 1.6 m Height (Calculated Centimeters) 160.0 Current Weight (lbs) 65.317 kg Weight (Calculated Kilograms) 65.3 Weight (Calculated Grams) 99376.3 [place] Body Weight 115 Body Mass Index (BMI) 25.4 Weight Status Overweight GI Symptoms GI Symptoms None Last BM 10/06 Difficult in: None Skin Integrity/Comment: skin tear to left arm Current %PO Poor (25-49%) Estimated Nutritional Goals BEE in Kcals: Using Current wt Calories/Kcals/Kg 25-30 Kcals Calculated 3757-1697 Protein: Using Current wt Protein g/k Protein Calculated 65 Fluid: ml 1625-1950ml (1ml/kcal) Nutritional Problem 1. Problem Problem inadequate food intake Etiology poor appetite Signs/Symptoms: PO intake <50% Malnutrition Alert Muscle Mass (Non-Severe) Mild Depletion Protein-Calorie Malnutrition N/A Is there a minimum of two criteria No selected? Query Text:Check all the applicable criteria. A minimum of two criteria are recommended for diagnosis of either severe or non-severe malnutrition. Intervention/Recommendation Comments 1. Continue with cardiac diet as ordered. Encouraged oral intake. If PO intake continue new, will consider adding nutrition supplements to increase nutrition intake. 2. Monitor PO intake, wt, labs and skin integrity 3. F/U as high risk in 2-3 days, 10/08-10/09 Expected Outcomes/Goals Expected Outcomes/Goals 1. PO intake to meet at least 75% of nutritional needs. 2. Wt stability, skin to remain intact, labs to approach WNL.
[2017-10-15] MEDS: Levothyroxine 0.075 Mg Tab PO SCH (06:35)
[2017-10-15] MEDS: Aspirin 81mg Chewable Tab PO SCH (08:59)
[2017-10-15] MEDS: NIFEdipine 30 mg ER Tab PO SCH (08:59)
[2017-10-15] MEDS: Enoxaparin 40 mg/0.4 mL 0.4mL Syr SUBQ SCH (09:01)
--- NOTE | 2017-10-15 23:42 | Progress Notes ---
DATE: 10/15/2017 SUBJECTIVE: Chart reviewed and the patient interviewed. Also discussed the patient's condition with the staff and reviewed records and labs. The patient is still depressed and anxious, but affect is brighter. The patient also is trying to interact more with peers and with others. The patient denies any thoughts of suicide or homicide. She also compliant with taking her medications with no side effects of medications. ASSESSMENT: The patient is still depressed, but not suicidal. TREATMENT PLAN: Continue current medications and treatment which is Paxil and Seroquel the same dose. Also, work on discharge plans with her children unless otherwise specified. Also, work on her ineffective coping. After the patient's discharge, the patient will need treatment and follow up as an outpatient. JOB# [id number]
--- NOTE | 2017-10-15 23:53 | Internal Medicine Prog Note ---
Internal Medicine Subjective - Subjective Patient seen and examined:: without staff (SHE FEELS WELL) Patient is:: awake, verbal, in bed, confused Patient Complaints of:: other (NO SOB) Per staff patient has:: no adverse event Internal Medicine Objective - Results Result Diagrams: 10/12/17 05:53 10/12/17 16:59 Recent Labs: Laboratory Last Values WBC 7.9 Th/cmm (4.8-10.8) 10/12/17 05:53 RBC 4.27 Mil/cmm (3.80-5.20) 10/12/17 05:53 Hgb 12.1 gm/dL (12-16) 10/12/17 05:53 Hct 37.1 % (41.0-60) L 10/12/17 05:53 MCV 86.7 fl (81-100) 10/12/17 05:53 MCH 28.4 pg (27.0-31.0) 10/12/17 05:53 MCHC Differential 32.8 pg (28.0-36.0) 10/12/17 05:53 RDW 14.1 % (11.5-20.0) 10/12/17 05:53 Plt Count 233 Th/cmm (150-400) 10/12/17 05:53 MPV 8.8 fl 10/12/17 05:53 Neutrophils % 53.5 % (40.0-80.0) 10/12/17 05:53 Lymphocytes % 30.2 % (20.0-50.0) 10/12/17 05:53 Monocytes % 12.5 % (2.0-10.0) H 10/12/17 05:53 Eosinophils % 3.0 % (0.0-5.0) 10/12/17 05:53 Basophils % 0.8 % (0.0-2.0) 10/12/17 05:53 PT 10.2 SECONDS (9.5-11.5) 10/02/17 14:30 INR 0.98 (0.5-1.4) 10/02/17 14:30 PTT (Actin FS) 23.2 SECONDS (26.0-38.0) L 10/02/17 14:30 D-Dimer 1780 ng/mL (100-400) H 10/02/17 14:30 Sodium 137 mEq/L (136-145) 10/12/17 06:00 Potassium 4.1 mEq/L (3.5-5.1) 10/12/17 16:59 Chloride 99 mEq/L (98-107) 10/12/17 06:00 Carbon Dioxide 27.9 mEq/L (21.0-31.0) 10/12/17 06:00 Anion Gap 12.8 (7.0-16.0) 10/12/17 06:00 BUN 42 mg/dL (7-25) H 10/12/17 06:00 Creatinine 1.7 mg/dL (0.6-1.2) H 10/12/17 06:00 Est GFR ( Amer) TNP 10/12/17 06:00 Est GFR (Non-Af Amer) TNP 10/12/17 06:00 BUN/Creatinine Ratio 24.7 10/12/17 06:00 Glucose 100 mg/dL (70-105) 10/12/17 06:00 Whole Bld Lactic Acid 1.42 mmol/L (0.60-1.99) 10/02/17 14:30 Calcium 9.3 mg/dL (8.6-10.3) 10/12/17 06:00 Total Bilirubin 0.4 mg/dL (0.3-1.0) 10/02/17 14:30 AST 37 U/L (13-39) 10/02/17 14:30 ALT 12 U/L (7-52) 10/02/17 14:30 Alkaline Phosphatase 71 U/L (34-104) 10/02/17 14:30 Creatine Kinase 465 U/L (30-223) H 10/02/17 14:30 CK-MB (CK-2) 7.0 ng/mL (0.6-6.3) H 10/02/17 14:30 Troponin I 0.05 ng/mL (0.01-0.05) 10/04/17 06:00 B-Natriuretic Peptide 255.0 pg/mL (5.0-100.0) H 10/02/17 14:30 Total Protein 6.9 gm/dL (6.0-8.3) 10/02/17 14:30 Albumin 3.9 gm/dL (3.7-5.3) 10/02/17 14:30 Globulin 3.0 gm/dL 10/02/17 14:30 Albumin/Globulin Ratio 1.3 (1.0-1.8) 10/02/17 14:30 Triglycerides 155 mg/dL (<150) H 10/04/17 06:00 Cholesterol 204 mg/dL (<200) H 10/04/17 06:00 LDL Cholesterol Direct 133 mg/dL (75-193) 10/04/17 06:00 HDL Cholesterol 45 mg/dL (23-92) 10/04/17 06:00 Urine Source MIDSTREAM 10/02/17 16:20 Urine Color YELLOW 10/02/17 16:20 Urine Clarity CLEAR (CLEAR) 10/02/17 16:20 Urine pH 6.0 (4.6 - 8.0) 10/02/17 16:20 Ur Specific [place] <= 1.005 (1.005-1.030) 10/02/17 16:20 Urine Protein NEGATIVE mg/dL (NEGATIVE) 10/02/17 16:20 Urine Glucose (UA) NEGATIVE mg/dL (NEGATIVE) 10/02/17 16:20 Urine Ketones NEGATIVE mg/dL (NEGATIVE) 10/02/17 16:20 Urine Blood TRACE (NEGATIVE) 10/02/17 16:20 Urine Nitrate NEGATIVE (NEGATIVE) 10/02/17 16:20 Urine Bilirubin NEGATIVE (NEGATIVE) 10/02/17 16:20 Urine Urobilinogen 0.2 E.U./dL (0.2 - 1.0) 10/02/17 16:20 Ur Leukocyte Esterase TRACE (NEGATIVE) H 10/02/17 16:20 Urine RBC 0-2 /hpf (0-5) 10/02/17 16:20 Urine WBC 0-2 /hpf (0-5) 10/02/17 16:20 Ur Epithelial Cells RARE /lpf (FEW) 10/02/17 16:20 Urine Bacteria NONE SEEN /hpf (NONE SEEN) 10/02/17 16:20 - Physical Exam Vitals and I&O: Vital Signs Temp 98.5 F 10/15/17 18:00 Pulse 67 10/15/17 18:00 Resp 20 10/15/17 18:00 BP 98/57 10/15/17 18:00 Pulse Ox 100 10/15/17 12:05 Intake & Output 10/15/17 10/15/1710/16/18 06:59 18:59 06:59 Intake Total 240 Balance 240 Weight (lbs) 61.235 kg 60.6 kg Intake: Oral 240 Other: # Voids 3 3 Weight Source Bedscale Bedscale Active Medications: Current Medications Aspirin (Aspirin Chewable) 81 mg PO DAILY [facility] Stop: 12/02/17 08:59 Last Admin: 10/15/17 08:59 Dose: 81 mg Cholecalciferol (Vitamin D3) 1,000 iu PO DAILY [facility] Stop: 12/02/17 08:59 Last Admin: 10/15/17 08:59 Dose: 1,000 iu Enoxaparin Sodium (Lovenox) 40 mg SUBQ DAILY [facility] Stop: 12/01/17 22:41 Last Admin: 10/15/17 09:01 Dose: 40 mg Furosemide (Lasix) 20 mg IVP Q12H [facility] Stop: 12/01/17 22:41 Last Admin: 10/15/17 10:09 Dose: 20 mg Hydralazine HCl (Apresoline) 50 mg PO TID [facility] Stop: 12/02/17 13:59 Last Admin: 10/15/17 13:09 Dose: 50 mg Levothyroxine Sodium (Synthroid) 0.075 mg PO QDAC [facility] Stop: 12/02/17 07:29 Last Admin: 10/15/17 06:35 Dose: 0.075 mg Losartan Potassium (Cozaar) 100 mg PO DAILY [facility] Stop: 12/03/17 08:59 Last Admin: 10/15/17 09:00 Dose: 100 mg Metoprolol Tartrate (Lopressor) 25 mg PO BID [facility] Stop: 12/01/17 22:29 Last Admin: 10/15/17 17:50 Dose: Not Given Nifedipine (Procardia Xl) 90 mg PO DAILY [facility] Stop: 12/02/17 09:59 Last Admin: 10/15/17 08:59 Dose: 90 mg Paroxetine HCl (Paxil) 40 mg PO DAILY [facility] PRN Reason: Protocol Stop: 12/02/17 08:59 Last Admin: 10/15/17 09:01 Dose: 40 mg Quetiapine Fumarate (Seroquel) 25 mg PO HS [facility] PRN Reason: Protocol Stop: 12/04/17 07:08 Last Admin: 10/14/17 20:44 Dose: 25 mg General: demented HEENT: anicteric sclerae, throat clear Neck: Supple, No JVD, No thyromegaly, +2 carotid pulse wo bruit, No LAD Lungs: CTAB Cardiovascular: RRR, Normal S1, Normal S2, without murmur Abdomen: non-tender, non-distended Extremities: clear Neurological: no change Internal Medicine Assmt/Plan - Assessment Assessment: 1.CHF. 2.HTN 3.DEMENTIA. - Plan Plan: CONTINUE ON CURRENT MEDICATION AND DIET. Nutritional Asmnt/Malnutr-PDOC - Dietary Evaluation Malnutrition Findings (Please click <Entered> for more info): Nutritional Asmnt/Malnutrition Start: 10/06/17 13: 52 Text: Status: Complete Freq: Q12H Document 10/06/17 13:52 [facility] (Rec: 10/06/17 [email or web address] Nutritional Asmnt/Malnutrition Patient General Information Nutritional Screening Moderate Risk Diagnosis CHF exacerbation Pertinent Medical Hx/Surgical Hx HTN, hypothyroidism, dementia, depression Subjective Information Pt seen sitting up in bed starting with lunch. Per SENIOR SALES OPERATIONS MANAGER, pt had 50% of breakfast thir morning, PO intake improving. Per EMR, PO intake 0-10% yesterday 10/05. Pt stated no appetite, she has no buttom teeth, but denied any problem with chewing. Current Diet Order/ Nutrition Support cardiac Pertinent Medications vit D3, lasix, synthroid, seroquel Pertinent Labs 10/04 na 135, cl 97, cr 1.4, glucose 122 Nutritional Hx/Data Height 1.6 m Height (Calculated Centimeters) 160.0 Current Weight (lbs) 65.317 kg Weight (Calculated Kilograms) 65.3 Weight (Calculated Grams) 26520.3 [place] Body Weight 115 Body Mass Index (BMI) 25.4 Weight Status Overweight GI Symptoms GI Symptoms None Last BM 58 Difficult in: None Skin Integrity/Comment: skin tear to left arm Current %PO Poor (25-49%) Estimated Nutritional Goals BEE in Kcals: Using Current wt Calories/Kcals/Kg 25-30 Kcals Calculated 9824-3357 Protein: Using Current wt Protein g/k Protein Calculated 65 Fluid: ml 1625-1950ml (1ml/kcal) Nutritional Problem 1. Problem Problem inadequate food intake Etiology poor appetite Signs/Symptoms: PO intake <50% Malnutrition Alert Muscle Mass (Non-Severe) Mild Depletion Protein-Calorie Malnutrition N/A Is there a minimum of two criteria No selected? Query Text:Check all the applicable criteria. A minimum of two criteria are recommended for diagnosis of either severe or non-severe malnutrition. Intervention/Recommendation Comments 1. Continue with cardiac diet as ordered. Encouraged oral intake. If PO intake continue new, will consider adding nutrition supplements to increase nutrition intake. 2. Monitor PO intake, wt, labs and skin integrity 3. F/U as high risk in 2-3 days, 10/08-10/09 Expected Outcomes/Goals Expected Outcomes/Goals 1. PO intake to meet at least 75% of nutritional needs. 2. Wt stability, skin to remain intact, labs to approach WNL.
[2017-10-16] MEDS: Levothyroxine 0.075 Mg Tab PO SCH (06:56)
[2017-10-16] MEDS: Enoxaparin 40 mg/0.4 mL 0.4mL Syr SUBQ SCH (08:41)
[2017-10-16] MEDS: Aspirin 81mg Chewable Tab PO SCH (08:42)
[2017-10-16] MEDS: NIFEdipine 30 mg ER Tab PO SCH (09:00)
[2017-10-16] MEDS ORDERED: VTE Chemical Prophylaxis Screen/Admission MC PRN (13:40)
--- NOTE | 2017-10-16 19:36 | Internal Medicine Prog Note ---
Internal Medicine Subjective - Subjective Service Date: 10/16/17 Patient seen and examined:: with staff (SHE FEELS BETTER,STILL WEAK.) Patient is:: awake, verbal, in bed, confused Patient Complaints of:: other (NO SOB) Per staff patient has:: no adverse event Internal Medicine Objective - Results Result Diagrams: 10/12/17 05:53 10/12/17 16:59 Recent Labs: Laboratory Last Values WBC 7.9 Th/cmm (4.8-10.8) 10/12/17 05:53 RBC 4.27 Mil/cmm (3.80-5.20) 10/12/17 05:53 Hgb 12.1 gm/dL (12-16) 10/12/17 05:53 Hct 37.1 % (41.0-60) L 10/12/17 05:53 MCV 86.7 fl (81-100) 10/12/17 05:53 MCH 28.4 pg (27.0-31.0) 10/12/17 05:53 MCHC Differential 32.8 pg (28.0-36.0) 10/12/17 05:53 RDW 14.1 % (11.5-20.0) 10/12/17 05:53 Plt Count 233 Th/cmm (150-400) 10/12/17 05:53 MPV 8.8 fl 10/12/17 05:53 Neutrophils % 53.5 % (40.0-80.0) 10/12/17 05:53 Lymphocytes % 30.2 % (20.0-50.0) 10/12/17 05:53 Monocytes % 12.5 % (2.0-10.0) H 10/12/17 05:53 Eosinophils % 3.0 % (0.0-5.0) 10/12/17 05:53 Basophils % 0.8 % (0.0-2.0) 10/12/17 05:53 PT 10.2 SECONDS (9.5-11.5) 10/02/17 14:30 INR 0.98 (0.5-1.4) 10/02/17 14:30 PTT (Actin FS) 23.2 SECONDS (26.0-38.0) L 10/02/17 14:30 D-Dimer 1780 ng/mL (100-400) H 10/02/17 14:30 Sodium 137 mEq/L (136-145) 10/12/17 06:00 Potassium 4.1 mEq/L (3.5-5.1) 10/12/17 16:59 Chloride 99 mEq/L (98-107) 10/12/17 06:00 Carbon Dioxide 27.9 mEq/L (21.0-31.0) 10/12/17 06:00 Anion Gap 12.8 (7.0-16.0) 10/12/17 06:00 BUN 42 mg/dL (7-25) H 10/12/17 06:00 Creatinine 1.7 mg/dL (0.6-1.2) H 10/12/17 06:00 Est GFR ( Amer) TNP 10/12/17 06:00 Est GFR (Non-Af Amer) TNP 10/12/17 06:00 BUN/Creatinine Ratio 24.7 10/12/17 06:00 Glucose 100 mg/dL (70-105) 10/12/17 06:00 Whole Bld Lactic Acid 1.42 mmol/L (0.60-1.99) 10/02/17 14:30 Calcium 9.3 mg/dL (8.6-10.3) 10/12/17 06:00 Total Bilirubin 0.4 mg/dL (0.3-1.0) 10/02/17 14:30 AST 37 U/L (13-39) 10/02/17 14:30 ALT 12 U/L (7-52) 10/02/17 14:30 Alkaline Phosphatase 71 U/L (34-104) 10/02/17 14:30 Creatine Kinase 465 U/L (30-223) H 10/02/17 14:30 CK-MB (CK-2) 7.0 ng/mL (0.6-6.3) H 10/02/17 14:30 Troponin I 0.05 ng/mL (0.01-0.05) 10/04/17 06:00 B-Natriuretic Peptide 134.0 pg/mL (5.0-100.0) H 10/16/17 10:36 Total Protein 6.9 gm/dL (6.0-8.3) 10/02/17 14:30 Albumin 3.9 gm/dL (3.7-5.3) 10/02/17 14:30 Globulin 3.0 gm/dL 10/02/17 14:30 Albumin/Globulin Ratio 1.3 (1.0-1.8) 10/02/17 14:30 Triglycerides 155 mg/dL (<150) H 10/04/17 06:00 Cholesterol 204 mg/dL (<200) H 10/04/17 06:00 LDL Cholesterol Direct 133 mg/dL (75-193) 10/04/17 06:00 HDL Cholesterol 45 mg/dL (23-92) 10/04/17 06:00 Urine Source MIDSTREAM 10/02/17 16:20 Urine Color YELLOW 10/02/17 16:20 Urine Clarity CLEAR (CLEAR) 10/02/17 16:20 Urine pH 6.0 (4.6 - 8.0) 10/02/17 16:20 Ur Specific [place] <= 1.005 (1.005-1.030) 10/02/17 16:20 Urine Protein NEGATIVE mg/dL (NEGATIVE) 10/02/17 16:20 Urine Glucose (UA) NEGATIVE mg/dL (NEGATIVE) 10/02/17 16:20 Urine Ketones NEGATIVE mg/dL (NEGATIVE) 10/02/17 16:20 Urine Blood TRACE (NEGATIVE) 10/02/17 16:20 Urine Nitrate NEGATIVE (NEGATIVE) 10/02/17 16:20 Urine Bilirubin NEGATIVE (NEGATIVE) 10/02/17 16:20 Urine Urobilinogen 0.2 E.U./dL (0.2 - 1.0) 10/02/17 16:20 Ur Leukocyte Esterase TRACE (NEGATIVE) H 10/02/17 16:20 Urine RBC 0-2 /hpf (0-5) 10/02/17 16:20 Urine WBC 0-2 /hpf (0-5) 10/02/17 16:20 Ur Epithelial Cells RARE /lpf (FEW) 10/02/17 16:20 Urine Bacteria NONE SEEN /hpf (NONE SEEN) 10/02/17 16:20 - Physical Exam Vitals and I&O: Vital Signs Temp 97.4 F 10/16/17 16:00 Pulse 58 10/16/17 18:02 Resp 18 10/16/17 16:00 BP 105/58 10/16/17 18:02 Pulse Ox 98 10/16/17 16:00 Intake & Output 10/16/17 10/16/17 10/17/17 06:59 18:59 06:59 Intake Total 120 Balance 120 Weight (lbs) 62.823 kg Intake: Oral 120 Other: # Voids 3 # Bowel Movements 0 Stool Characteristics Soft Weight Source Bedscale Active Medications: Current Medications Aspirin (Aspirin Chewable) 81 mg PO DAILY [facility] Stop: 12/02/17 08:59 Last Admin: 10/16/17 08:42 Dose: 81 mg Cholecalciferol (Vitamin D3) 1,000 iu PO DAILY [facility] Stop: 12/02/17 08:59 Last Admin: 10/16/17 08:43 Dose: 1,000 iu Enoxaparin Sodium (Lovenox) 40 mg SUBQ DAILY [facility] Stop: 12/01/17 22:41 Last Admin: 10/16/17 08:41 Dose: 40 mg Furosemide (Lasix) 20 mg IVP Q12H [facility] Stop: 12/01/17 22:41 Last Admin: 10/16/17 12:32 Dose: 20 mg Hydralazine HCl (Apresoline) 50 mg PO TID [facility] Stop: 12/02/17 13:59 Last Admin: 10/16/17 15:27 Dose: 50 mg Levothyroxine Sodium (Synthroid) 0.075 mg PO QDAC [facility] Stop: 12/02/17 07:29 Last Admin: 10/16/17 06:56 Dose: 0.075 mg Losartan Potassium (Cozaar) 100 mg PO DAILY [facility] Stop: 12/03/17 08:59 Last Admin: 10/16/17 09:00 Dose: 100 mg Metoprolol Tartrate (Lopressor) 25 mg PO BID [facility] Stop: 12/01/17 22:29 Last Admin: 10/16/17 18:02 Dose: 25 mg Miscellaneous (Vte Chemical Prophylaxis Screen/ Admission) 1 ea [facility] PRN PRN PRN Reason: PROTOCOL Stop: 12/15/17 13:39 Nifedipine (Procardia Xl) 90 mg PO DAILY [facility] Stop: 12/02/17 09:59 Last Admin: 10/16/17 09:00 Dose: 90 mg Paroxetine HCl (Paxil) 40 mg PO DAILY [facility] PRN Reason: Protocol Stop: 12/02/17 08:59 Last Admin: 10/16/17 08:35 Dose: 40 mg Quetiapine Fumarate (Seroquel) 25 mg PO HS [facility] PRN Reason: Protocol Stop: 12/04/17 07:08 Last Admin: 10/15/17 21:45 Dose: 25 mg General: demented HEENT: anicteric sclerae, throat clear Neck: Supple, No JVD, No thyromegaly, +2 carotid pulse wo bruit, No LAD Lungs: CTAB Cardiovascular: RRR, Normal S1, Normal S2, without murmur Abdomen: non-tender, non-distended Extremities: clear Neurological: no change Internal Medicine Assmt/Plan - Assessment Assessment: 1.CHF. 2.HTN 3.DEMENTIA. - Plan Plan: CONTINUE ON CURRENT MEDICATION AND DIET. Nutritional Asmnt/Malnutr-PDOC - Dietary Evaluation Malnutrition Findings (Please click <Entered> for more info): Nutritional Asmnt/Malnutrition Start: 10/06/17 13: 52 Text: Status: Complete Freq: Q12H Document 10/06/17 13:52 STAR (Rec: 10/06/17 14:00 [email or web address]) Nutritional Asmnt/Malnutrition Patient General Information Nutritional Screening Moderate Risk Diagnosis CHF exacerbation Pertinent Medical Hx/Surgical Hx HTN, hypothyroidism, dementia, depression Subjective Information Pt seen sitting up in bed starting with lunch. Per FIBROUS WALLBOARD INSPECTOR, pt had 50% of breakfast thir morning, PO intake improving. Per EMR, PO intake 0-10% yesterday 10/05. Pt stated no appetite, she has no buttom teeth, but denied any problem with chewing. Current Diet Order/ Nutrition Support cardiac Pertinent Medications vit D3, lasix, synthroid, seroquel Pertinent Labs 10/04 na 135, cl 97, cr 1.4, glucose 122 Nutritional Hx/Data Height 1.6 m Height (Calculated Centimeters) 160.0 Current Weight (lbs) 65.317 kg Weight (Calculated Kilograms) 65.3 Weight (Calculated Grams) 60517.3 [place] Body Weight 115 Body Mass Index (BMI) 25.4 Weight Status Overweight GI Symptoms GI Symptoms None Last BM 10/06 Difficult in: None Skin Integrity/Comment: skin tear to left arm Current %PO Poor (25-49%) Estimated Nutritional Goals BEE in Kcals: Using Current wt Calories/Kcals/Kg 25-30 Kcals Calculated 0090-1285 Protein: Using Current wt Protein g/k Protein Calculated 65 Fluid: ml 1625-1950ml (1ml/kcal) Nutritional Problem 1. Problem Problem inadequate food intake Etiology poor appetite Signs/Symptoms: PO intake <50% Malnutrition Alert Muscle Mass (Non-Severe) Mild Depletion Protein-Calorie Malnutrition N/A Is there a minimum of two criteria No selected? Query Text:Check all the applicable criteria. A minimum of two criteria are recommended for diagnosis of either severe or non-severe malnutrition. Intervention/Recommendation Comments 1. Continue with cardiac diet as ordered. Encouraged oral intake. If PO intake continue new, will consider adding nutrition supplements to increase nutrition intake. 2. Monitor PO intake, wt, labs and skin integrity 3. F/U as high risk in 2-3 days, 10/08-10/09 Expected Outcomes/Goals Expected Outcomes/Goals 1. PO intake to meet at least 75% of nutritional needs. 2. Wt stability, skin to remain intact, labs to approach WNL.
--- NOTE | 2017-10-16 22:00 | Progress Notes ---
DATE: SUBJECTIVE: Chart reviewed and the patient interviewed. Also discussed the patient's condition with the staff and reviewed records and labs. The patient seems to be slightly sedated this morning. She is anxious, but cooperative with her treatment. The patient also denies any thoughts of suicide or homicide. The patient also has been compliant with taking her medications with no side effects of medications. ASSESSMENT: The patient is still depressed, but not suicidal or psychotic. TREATMENT PLAN: Continue same level of treatment and continue to follow up. [facility]# [id number]
[2017-10-17] MEDS: Enoxaparin 40 mg/0.4 mL 0.4mL Syr SUBQ SCH (08:56)
[2017-10-17] MEDS: Aspirin 81mg Chewable Tab PO SCH (09:03)
[2017-10-17] MEDS: NIFEdipine 30 mg ER Tab PO SCH (09:06)
[2017-10-17] MEDS: Levothyroxine 0.075 Mg Tab PO SCH (09:08)
--- NOTE | 2017-10-17 21:47 | Progress Notes ---
DATE: 10/17/2017 Case was discussed with staff of the patient, reviewed records. The patient seems to be doing better, able to carry on a conversation, though she does not know the date. She knows she is in the hospital. She denies any current intent to harm herself or anybody. She denies any auditory or visual hallucination or paranoia. She has been compliant with the medication with no side effects. She is on Paxil 40 mg daily and Seroquel 25 mg at bedtime. No side effects, no sedation, no nausea. Thank you very much for allowing me to participate in the care of this most interesting lady. JOB# [id number]
--- NOTE | 2017-10-19 18:32 | Discharge Summary ---
DATE OF DISCHARGE: 10/17/2017 FINAL DIAGNOSES: 1. Acute exacerbation of systolic congestive heart failure. 2. Hypertension. 3. Hypothyroidism. 4. Depression. 5. Dementia. REVIEW OF HISTORY: The patient is an 86-year-old female with long history of hypothyroidism, hypertension, depression and mild dementia, presented to the Emergency Room with acute shortness of breath. Initial workup significant for acute exacerbation of systolic congestive heart failure, admitted to telemetry. Cardiac consultation obtained. PHYSICAL EXAMINATION: VITAL SIGNS: Temperature 98, heart rate 77, blood pressure 183/81. CHEST: Mild diminished breathing sound. HEART: S1, S2 normal. ABDOMEN: Soft, bowel sounds positive. LABORATORY DATA: White blood 6, hemoglobin 13, hematocrit 38.7, INR 0.98. Sodium 138, potassium 4.1, BUN 23, creatinine 2.1. The patient started on cardiac diet, IV Lasix. COURSE OF HOSPITALIZATION: The patient was seen by Dr. Samy Conde, sustain engineer. The patient improved clinically and on 08 Oct 2017, the patient evaluated by the physical therapy. She was high risk for fall. Case discussed with the family and they asked to transfer to the rehab center with the insurance. We talked to the insurance and they agreed to find a place for her on 10/12/2017. The patient was feeling better, no chest pain, no shortness of breath, no nausea, no vomiting. The patient remained stable clinically on the 17 Oct 2017. The family agreed to take the patient home. DISPOSITION: The patient discharged home to be followed up with primary care physician as outpatient. CONDITION ON DISCHARGE: Stable. MEDICATIONS: Follow discharge reconciliation. JOB# [id number]
== END 2017-10-17 15:36 | disposition home or self-care (01) | DRG 292 ==
LOC: ER 14:08 → ICU 18:00 → TELE 10-03 14:08 → MSI 10-05 12:36
PROVIDERS: ADMIT Family Medicine; ATTEND Family Medicine
PROC: 3E0234Z Introduction of Serum, Toxoid and Vaccine into Muscle, Percutaneous Approach (ICD-10-PCS; principal; 2017-10-03)
DX: I11.0 Hypertensive heart disease with heart failure (principal); F33.3 Major depressive disorder, recurrent, severe with psychotic symptoms; J44.0 Chronic obstructive pulmonary disease with (acute) lower respiratory infection; I50.23 Acute on chronic systolic (congestive) heart failure; I25.9 Chronic ischemic heart disease, unspecified; E03.9 Hypothyroidism, unspecified; F03.90 Unspecified dementia, unspecified severity, without behavioral disturbance, psychotic disturbance, mood disturbance, and anxiety; F41.9 Anxiety disorder, unspecified; R00.1 Bradycardia, unspecified; M81.0 Age-related osteoporosis without current pathological fracture; E78.5 Hyperlipidemia, unspecified; Z82.49 Family history of ischemic heart disease and other diseases of the circulatory system; Z71.89 Other specified counseling; Z79.899 Other long term (current) drug therapy; Z23 Encounter for immunization
CPT/HCPCS: 36415-UA; 71045-TC; 71275-TC; 80048-TC; 80053-TC; 80061-TC; 81001-TC; 82550-TC; 82553; 83605; 83880-TC; 84132-TC; 84484-TC; 85025-TC; 85379-TC; 85610-TC; 85730-TC; 93005; 93970-TC-50; 97530; J0696; J1650; J1940; J2060; J3480; J7040; Q9967; X3904; Z7610